=== PATIENT | female | born 1970 | race African-American/Black ===

== ENCOUNTER 2019-06-30 16:14 | Outpatient (CLI) | payer BC, SELFPAY ==
--- NOTE | ~2019-06-30 | XR_ITS ---
EXAMINATION: XR hip BI 2V w AP pelvis DATE: 06/30/2019 16:33 INDICATION: Systemic lupus erythematosus TECHNIQUE: AP view the pelvis and two views of the hips were obtained. COMPARISON: 06/26/2003 FINDINGS: Bone alignment is normal. There is mild bilateral hip osteoarthritis. An IUD is noted. Line ar calcifications in the pelvis have the appearance of sacral ribs. No abnormal erosion or sclerosis is identified. There is no fracture. Phleboliths are noted in the pelvis. IMPRESSION: 1. Mild osteoarthritis of the hips without acute findings. Reviewed, dictated and finalized at location A.
== END 2019-06-30 16:15 | disposition home or self-care (01) ==
LOC: ANHIMG 16:19
PROVIDERS: PCP Family Medicine; Visit Provider Internal Medicine
DX: M32.9 Systemic lupus erythematosus, unspecified (principal); M16.0 Bilateral primary osteoarthritis of hip
CPT/HCPCS: 73521

== ENCOUNTER 2019-09-05 02:00 | Outpatient (CLI) | payer BC, SELFPAY ==
[2019-09-05 23:05] LABS: SARS-CoV-2 RNA PCR Negative
== END 2019-09-05 02:01 | disposition home or self-care (01) ==
LOC: ANHCOVIDDT 02:00
PROVIDERS: PCP Family Medicine; Visit Provider Internal Medicine Gastroenterology
DX: Z01.812 Encounter for preprocedural laboratory examination (principal); Z11.59 Encounter for screening for other viral diseases
CPT/HCPCS: 87635; C9803; U0003

== ENCOUNTER 2019-09-08 00:43 | Day surgery (SDC) | payer BC, SELFPAY ==
[2019-08-27 14:50] VITALS: BMI 32.3
[2019-09-08] MEDS: LACTATED RINGERS 1,000 ML 150 ML IV CONT (06:36)
[2019-09-08 06:38] VITALS: BP 142/94; PULSE 105; RESP 18; TEMP 35.8; O2SAT 98
--- NOTE | 2019-09-08 07:10 | WPDANESEPPF ---
Anes - Initial Pre Proc Eval Procedure: Operation Date: 09/08/19 07:30 Proposed Procedures p Screening Colonoscopy - Jamal David MD Date/Time: 09/08/19 07:10 Surgeon: Jamal David MD Pre Op Diagnosis: Neoplasm Screening Patient Data Age: 49 Gender: F Height: 1.65 m Weight: 85.5 kg Last Vital Signs Temp 35.8 C L 09/08/19 06:38 Pulse 105 H 09/08/19 06:38 Resp 18 09/08/19 06:38 BP 142/94 H 09/08/19 06:38 Pulse Ox 98 09/08/19 06:38 Allergies Allergy/AdvReac Type Severity Reaction Status Date / Time No Known Allergies Allergy Mild Verified 09/08/19 06:15 Home Medications Medication Instructions Recorded Confirmed Type acetaminophen 325 mg tablet 325 mg PO Q6H PRN 01/14/19 08/27/19 History aspirin 81 mg tablet,delayed 81 mg PO DAILY 01/14/19 08/27/19 History release cholecalciferol (vitamin D3) 50 2,000 unit PO DAILY 01/14/19 08/27/19 History mcg (2,000 unit) tablet latanoprost 0.005 % eye drops 1 drop EACH EYE DAILY 01/14/19 08/27/19 History lisinopril 20 mg tablet 20 mg PO DAILY 07/23/19 09/08/19 History azathioprine 50 mg tablet 50 mg PO BID #60 tablet 08/19/19 08/27/19 Rx hydroxychloroquine 200 mg tablet 400 mg PO DAILY #60 tablet 08/19/19 08/27/19 Rx peg 3350-electrolytes 236 240 ml PO Q10M #4000 ml 08/26/19 Rx gram-22.74 gram-6.74 gram-5.86 gram solution calcium carbonate-vitamin D3 1 tablet PO DAILY 08/27/19 08/27/19 History [Calcium 500 + D] duloxetine 120 mg PO DAILY 08/27/19 08/27/19 History omega-3 fatty acids-fish oil 2 cap PO DAILY 08/27/19 08/27/19 History Patient hx anesthesia problems: none Family hx anesthesia problems: none PMFSH Social History Social History Smoking status: Never smoker Second hand tobacco smoke exposure: No Alcohol intake: current Drinks per week: 3 Substance use: never Substance use type: does not use Gender identity (if verbalized by the patient): Female Anes - Eval Final PreProcedure Day of Procedure 09/08/19 07:10 Patient weight: obese Heart: regular rate and rhythm Lungs: clear to auscultation and normal air movement Airway: Mallampati scale class II Neurological: alert and oriented Last oral intake: >/= 8 hours ASA classification: III Emergent: no Anesthetic plan: proceed Anesthesia type and monitoring: general GIVS and standard monitoring Informed Consent: The patient's anesthetic plan and its attendant risks and benefits were discussed with the patient/family/POA. Questions were solicited and answers provided to the satisfaction of the patient/family/POA.
--- NOTE | 2019-09-08 07:35 | PM.HPGS ---
History of Present Illness History of Present Illness Consent: Risks, benefits, and alternatives have been discussed and questions answered. Patient agrees to proceed with procedure. Chief complaint: Neoplasm Screening Narrative: Aye Bunch is a 49 year old female here for first screening colonoscopy Review of Systems Constitutional: Constitutional: Denies headache(s) and Denies weakness Eyes: Eyes: Denies blurry vision ENT: Reports Normal hearing present, Denies headache(s) and Denies neck pain Cardiovascular: Cardiovascular: Denies chest pain and Denies dyspnea Respiratory: Respiratory: Denies dyspnea Gastrointestinal: Gastrointestinal: Reports no additional gastrointestinal complaints Genitourinary: Genitourinary: Denies dysuria Musculoskeletal: Musculoskeletal: Denies neck pain Integumentary/Breasts: Skin/Breast: Denies dry skin Neurologic: Reports Normal hearing present, Denies headache(s) and Denies weakness Psychiatric: Psychiatric: Denies anxiety Endocrine: Endocrine: Denies change in body appearance Hematologic/Lymphatic: Hematologic/Lymphatic: Denies easy bleeding Allergic/Immunologic: Allergic/Immunologic: Denies urticaria PMFSH Social History Social History Smoking status: Never smoker Second hand tobacco smoke exposure: No Alcohol intake: current Drinks per week: 3 Substance use: never Substance use type: does not use Gender identity (if verbalized by the patient): Female Meds Home Medications and Allergies Home Medications Medication Instructions Recorded Confirmed Type acetaminophen 325 mg tablet 325 mg PO Q6H PRN 01/14/19 08/27/19 History aspirin 81 mg tablet,delayed 81 mg PO DAILY 01/14/19 08/27/19 History release cholecalciferol (vitamin D3) 50 2,000 unit PO DAILY 01/14/19 08/27/19 History mcg (2,000 unit) tablet latanoprost 0.005 % eye drops 1 drop EACH EYE DAILY 01/14/19 08/27/19 History lisinopril 20 mg tablet 20 mg PO DAILY 07/23/19 09/08/19 History azathioprine 50 mg tablet 50 mg PO BID #60 tablet 08/19/19 08/27/19 Rx hydroxychloroquine 200 mg tablet 400 mg PO DAILY #60 tablet 08/19/19 08/27/19 Rx peg 3350-electrolytes 236 240 ml PO Q10M #4000 ml 08/26/19 Rx gram-22.74 gram-6.74 gram-5.86 gram solution calcium carbonate-vitamin D3 1 tablet PO DAILY 08/27/19 08/27/19 History [Calcium 500 + D] duloxetine 120 mg PO DAILY 08/27/19 08/27/19 History omega-3 fatty acids-fish oil 2 cap PO DAILY 08/27/19 08/27/19 History Allergies Allergy/AdvReac Type Severity Reaction Status Date / Time No Known Allergies Allergy Mild Verified 09/08/19 06:15 Vital Signs Vital Signs - 24 hr 09/08/19 06:38 Temperature 96.5 F L Pulse Rate 105 H Respiratory Rate 18 Blood Pressure 142/94 H Pulse Oximetry 98 Exam Const: General: comfortable and no acute distress HENMT: General nose exam: Normal nares present Eyes: General: appearance normal, both eyes and all related structures Neck: Neck: no JVD Resp: Auscultation: clear to auscultation bilaterally Cardio: Rate: regular rate Rhythm: regular rhythm GI: Inspection: non-distended GI Palp: Yes Soft to palpation Skin: General skin exam: normal color Neuro: General: gait normal Speech: normal speech Extrem: General: normal to inspection Psych: Mental Status: mental status grossly normal Assessment and Plan Assessment and plan (1) Colon cancer screening: Code(s): Z12.11 - Encounter for screening for malignant neoplasm of colon Status: Acute Assessment and Plan: will proceed with colonoscopy
[2019-09-08 08:05] VITALS: BP 125/86; PULSE 96; RESP 16; O2SAT 98
[2019-09-08 08:15] VITALS: BP 131/93; PULSE 92; RESP 20; O2SAT 98
[2019-09-08 08:19] VITALS: BP 135/96; PULSE 88; RESP 20; O2SAT 99
== END 2019-09-08 08:38 | disposition home or self-care (01) ==
PROVIDERS: PCP Family Medicine; Visit Provider Internal Medicine Gastroenterology
PROC: 0DJD8ZZ Inspection of Lower Intestinal Tract, Via Natural or Artificial Opening Endoscopic (ICD-10-PCS; CPT 45378; principal; 2019-09-08 07:30)
DX: Z12.11 Encounter for screening for malignant neoplasm of colon (principal); K57.30 Diverticulosis of large intestine without perforation or abscess without bleeding; K64.8 Other hemorrhoids; Z79.82 Long term (current) use of aspirin; E66.9 Obesity, unspecified; Z68.31 Body mass index [BMI] 31.0-31.9, adult
CPT/HCPCS: 45378; J2704; J7120

== ENCOUNTER 2019-09-15 16:11 | Outpatient (CLI) | payer BC, SELFPAY ==
--- NOTE | ~2019-09-15 | MM_ITS ---
EXAMINATION: MM screening edilberto BI w amarilys HISTORY: Screening TECHNIQUE: Craniocaudal and mediolateral oblique 3-D tomosynthesis images were obtained and synthetic 2-D images were generated. CAD analysis was submitted and interpreted. COMPARISON: Comparison to multiple prior studies sequentially, with oldest reviewed study dated 04/21. BREAST PARENCHYMAL COMPOSITION: Breast composed of scattered areas of fibroglandular density FINDINGS: There is no evidence of suspicious mass, calcification, or architectural distortion to sugg est malignancy in either breast. There has been no suspicious interval change. IMPRESSION: 1. No mammographic evidence of malignancy. 2. Recommend routine screening mammography in one year. BI-RADS Category 1: Negative Reviewed, dictated and finalized at location A.
== END 2019-09-15 16:12 | disposition home or self-care (01) ==
LOC: ANHIMG 16:13
PROVIDERS: PCP Family Medicine; Visit Provider Family Medicine
DX: Z12.31 Encounter for screening mammogram for malignant neoplasm of breast (principal)
CPT/HCPCS: 77063; 77067

== ENCOUNTER 2020-04-14 15:04 | Outpatient (CLI) | payer BC, SELFPAY ==
--- NOTE | ~2020-04-14 | XR_ITS ---
EXAMINATION: XR knee RT 3V DATE: 04/14/2020 15:20 INDICATION: Right knee pain TECHNIQUE: Three views of the right knee were obtained. COMPARISON: 09/17/2017 FINDINGS: Alignment is normal. No fracture or osteochondral lesion. Again noted is mild osteoarthriti s of the lateral compartment with a tiny marginal osteophyte. Dystrophic calcification in the medial collateral ligament is again seen. No joint effusion/synovitis. IMPRESSION: 1. Mild osteoarthritis without acute findings. 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
== END 2020-04-14 15:05 | disposition home or self-care (01) ==
LOC: ANHIMG 15:07
PROVIDERS: PCP Family Medicine; Visit Provider Family Medicine
DX: S83.91XA Sprain of unspecified site of right knee, initial encounter (principal); X58.XXXA Exposure to other specified factors, initial encounter; M17.11 Unilateral primary osteoarthritis, right knee
CPT/HCPCS: 73562

== ENCOUNTER 2020-04-24 13:32 | Emergency (ER) | payer BC, SELFPAY ==
[2020-04-24 14:09] VITALS: BP 138/94; PULSE 102; RESP 16; TEMP 36.1; O2SAT 98
--- NOTE | 2020-04-24 14:30 | ED.FEMALEGU ---
HPI - Female Genitourinary General Chief complaint: Urogenital-Female Stated complaint: possible bladder infection Time Seen by Provider: 04/24/20 14:30 Source: patient Mode of arrival: ambulatory Limitations: no limitations History of Present Illness HPI Narrative: Aye Bunch is a 49 yo female with a PMH of lupus, rheumatoid arthritis, hypertension, seasonal allergies, high cholesterol, who is here with urinary frequency x2 days. She has spasming at the end of urination that is painful states she feels like she has to urinate all the time Related Data Home Medications Medication Instructions Recorded Confirmed acetaminophen 325 mg tablet 325 mg PO Q6H PRN 01/14/19 04/14/20 aspirin 81 mg tablet,delayed 81 mg PO DAILY 01/14/19 04/14/20 release cholecalciferol (vitamin D3) 50 2,000 unit PO DAILY 01/14/19 04/14/20 mcg (2,000 unit) tablet latanoprost 0.005 % eye drops 1 drop EACH EYE DAILY 01/14/19 04/14/20 calcium carbonate-vitamin D3 1 tablet PO DAILY 08/27/19 04/14/20 [Calcium 500 + D] omega-3 fatty acids-fish oil 2 cap PO DAILY 08/27/19 04/14/20 duloxetine 60 mg PO BID 04/24/20 Allergies Allergy/AdvReac Type Severity Reaction Status Date / Time No Known Allergies Allergy Mild Verified 04/24/20 14:05 Review of Systems Review of Systems: Narrative: CONSTITUTIONAL: Denies fever, chills, sweats. EYES: Denies visual changes, redness, discharge. ENT: Denies rhinorrhea, congestion, sore throat, otalgia. CARDIOVASCULAR: Denies chest pain, palpitations, edema. RESPIRATORY: Denies dyspnea, wheezing, cough GASTROINTESTINAL: Denies abdominal pain, nausea, vomiting, diarrhea. GENITOURINARY: Has dysuria, no hematuria, abnormal discharge SKIN: Denies rash or itching. NEUROLOGIC: Denies numbness, or focal weakness. PSYCHIATRIC: Denies anxiety or depression. [facility] Past Medical History Medical History (Updated 04/24/20 @ 14:44 by Petrona Cruz CNP) Benign essential HTN Fibromyalgia Lupus Primary localized osteoarthritis of both hips (~2015) Vitamin D deficiency Family History Family History Mother Hypertension Sibling Cerebrovascular accident, Onset Age: 48 Social History Social History Social History: Single Smoking status: Never smoker Second hand tobacco smoke exposure: No Alcohol intake: current Drinks per week: 3 Substance use: never Substance use type: does not use Gender identity (if verbalized by the patient): Female Comments At time of signature, I agree with nursing past medical, surgical, social and family history. There is no relevant family history pertinent to the presenting complaint. Exam Narrative: Exam Narrative: GENERAL: This is a well-nourished, well-developed patient, in mild distress. HEAD: normocephalic, atraumatic. EYES: Sclera clear/white. Vision is grossly intact. EARS: External ears normal. Hearing grossly intact. NOSE: External nose normal without nasal discharge, nares without redness, no rhinorrhea. THROAT: Mucous membranes moist, NECK: Neck supple, CARDIOVASCULAR: Regular rate and rhythm without murmurs, gallops, or rubs. RESPIRATORY: Clear to auscultation. Breath sounds equal bilaterally. No wheezes, rales, or rhonchi. GASTROINTESTINAL: Abdomen soft, non-tender, SKIN: warm, intact with no suspicious lesions or rash, good texture and turgor. NEURO: awake, alert, and oriented to person, place and time. There were no obvious focal neurologic abnormalities. Steady gait EXTREMITIES: Normal range of motion. BACK: Nontender without deformity Course Course Emergency Course: [facility] with complaints of urinary frequency for the last 24 to 48 hours, the only pain she has is a bladder spasm at the end of urinating Stage III plus leukocytes 2+ protein, urine sent for culture Keflex and Pyridium Directions given in
== END 2020-04-24 14:48 | disposition home or self-care (01) ==
PROVIDERS: Emergency Provider Nurse Practitioner; PCP Family Medicine
DX: N30.90 Cystitis, unspecified without hematuria (principal); M79.7 Fibromyalgia; M16.0 Bilateral primary osteoarthritis of hip; M32.9 Systemic lupus erythematosus, unspecified; E55.9 Vitamin D deficiency, unspecified; M06.9 Rheumatoid arthritis, unspecified; I10 Essential (primary) hypertension; E78.00 Pure hypercholesterolemia, unspecified
CPT/HCPCS: 81003; 87077; 87086; 87088; 87186; 99213; G0463

== ENCOUNTER 2020-05-18 14:24 | Outpatient (CLI) | payer BC, SELFPAY ==
--- NOTE | ~2020-05-18 | MR_ITS ---
EXAMINATION: MR knee RT wo con DATE: 05/18/2020 15:51 INDICATION: Right knee pain TECHNIQUE: Magnetic resonance imaging (MRI) of the right knee was performed without intravenous contr ast. Sequences included coronal PD-weighted FSE, coronal PD-weighted FS FSE, sagittal T2-weighted FS E, sagittal PD-weighted FS FSE and axial PD weighted fat saturated FSE. COMPARISON: None. FINDINGS: Medial compartment: Medial meniscus is normal. Articular cartilage is normal. Lateral compartment: Lateral meniscus is normal. Articular cartilage is normal. Patellofemoral compartment: Likely artifactual mild surface irregularity along the patella on a couple of the axial images with s mooth chondral surface seen at this location on the sagittal sequences. Trochlear cartilage is normal . Ligaments and tendons: Anterior and posterior cruciate ligaments are normal. There is thickening and mild increased signal o f the medial collateral ligament with tiny heterotopic ossification along the superficial margin of t he proximal ligament consistent with scarring related to chronic sprain. No surrounding edema to sugg est acute injury. Mild patellar tendinopathy with small amount of enthesopathic ossification along th e superficial aspect of its patellar insertion. There is also mild distal quadriceps tendinopathy. Th e visualized medial and lateral hamstring tendons as well as the iliotibial band are normal. Fluid: Physiologic amount of fluid in the joint space. No loose osteochondral bodies identified. Multilobula kika ganglion cyst at the posteromedial aspect of the knee. This includes a small component measuring 1.8 cm craniocaudally by 6 x 4 mm maximal orthogonal dimensions extending between the semimembranosus tendon and the medial head of the gastrocnemius (Medina's cyst) with larger components extending ceph alad along the deep margin of the semimembranosus tendon and muscle measuring 5.1 cm craniocaudally a nd 2.2 x 0.8 cm in maximal orthogonal dimensions and caudally along the deep margin of the medial hea d of the gastrocnemius measuring 2.9 craniocaudally and 2.2 x 1.3 cm in maximal orthogonal dimensions . Osseous/other: Normal marrow signal. No fracture or pathologic marrow replacing process. IMPRESSION: 1. 3 small to moderate-sized ganglion cysts at the posterior medial aspect of the knee. 2. Scarring and heterotopic ossification along the proximal medial collateral ligament consistent wit h chronic sprain. 3. Mild tendinopathy of the extensor mechanism. Reviewed, dictated and finalized at location B. IMPRESSION: 1. 3 small to moderate-sized ganglion cysts at the posterior medial aspect of t he knee. 2. Scarring and heterotopic ossification along the proximal medial collateral l igament consistent with chronic sprain. 3. Mild tendinopathy of the extensor mechanism.
== END 2020-05-18 14:25 | disposition home or self-care (01) ==
PROVIDERS: PCP Family Medicine; Visit Provider Nurse Practitioner Family
DX: M67.461 Ganglion, right knee (principal)
CPT/HCPCS: 73721

== ENCOUNTER 2020-06-07 13:14 | Outpatient (CLI) | payer BC, SELFPAY ==
--- NOTE | ~2020-06-07 | US_ITS ---
EXAMINATION: US asp injection ganglion cyst DATE: 06/07/2020 14:34 INDICATION: Right knee ganglion cyst. TECHNIQUE: The procedure including the risks, benefits, and alternatives was discussed with the patie nt. Risks discussed included bleeding and infection. The patient understood the risks and agreed to p roceed. The skin posterior to the right knee was prepped and draped in usual sterile fashion. Anesth etic was administered with 1% lidocaine subcutaneously. An 18 gauge trochar needle was then used to aspirate a ganglion cyst under continuous sonographic guidance. The entry site was cleaned and dresse d. There were no immediate complications. FINDINGS: Ultrasound images demonstrate the needle in a ganglion cyst posterior to the right knee. IMPRESSION: 1. Ultrasound-guided needle aspiration of a ganglion cyst posterior to right knee yielding 6 mL clear , yellow fluid. Reviewed, dictated and finalized at location A. IMPRESSION: 1. Ultrasound-guided needle aspiration of a ganglion cyst posterior to right kn ee yielding 6 mL clear, yellow fluid.
== END 2020-06-07 13:15 | disposition home or self-care (01) ==
PROVIDERS: PCP Family Medicine; Visit Provider Nurse Practitioner Family
DX: M67.461 Ganglion, right knee (principal)
CPT/HCPCS: 20612

== ENCOUNTER → 2020-10-19 14:42 | Outpatient (CLI) | payer BC, SELFPAY ==
--- NOTE | ~2020-10-19 | MM_ITS ---
EXAMINATION: MM screening edilberto BI w amarilys HISTORY: Screening mammogram TECHNIQUE: Craniocaudal and mediolateral oblique 3-D tomosynthesis images were obtained and synthetic 2-D images were generated. CAD analysis was submitted and interpreted. COMPARISON: 09/2019, 08/21/2018, 07/24/2017 bilateral digital screening mammogram examinations BREAST PARENCHYMAL COMPOSITION: The breasts are heterogeneously dense, which may obscure small masses . FINDINGS: There is no evidence of suspicious mass, calcification, or architectural distortion to sugg est malignancy in either breast. There has been no suspicious interval change. IMPRESSION: 1. No mammographic evidence of malignancy. 2. Recommend routine screening mammography in one year. BI-RADS Category 1: Negative Reviewed, dictated and finalized at location A.
== END ==
PROVIDERS: PCP Family Medicine; Visit Provider Advanced Practice Midwife
DX: Z12.31 Encounter for screening mammogram for malignant neoplasm of breast (principal)
CPT/HCPCS: 77063; 77067

== ENCOUNTER 2021-11-23 14:56 | Outpatient (CLI) | payer BC, SELFPAY ==
[2021-11-23 15:13] LABS: Hematocrit 41.5 % (37.0-47.0); Mean Corpuscular HGB Conc 33.7 g/dl (32-36); Mean Corpuscular Hemoglobin 32.3 pg (26-34); Mean Corpuscular Volume 95.8 fl (80-100); Mean Platelet Volume 9.9 fl (7.4-10.4); Platelet Count Result 234 k/mm3 (150-375); Red Blood Count 4.33 M/mm3 (4.2-5.4); Red Cell Distribution Width 13.2 % (11.5-14.5); White Blood Count 5.8 K/mm3 (4.5-10.0)
[2021-11-23 16:08] LABS: Alanine Aminotransferase 19 U/L (6-35); Albumin Level 4.3 g/dL (3.5-5.1); Alkaline Phosphatase 94 U/L (38-126); Anion Gap 8 mmol/L (8-16); Aspartate Amino Transferase 25 U/L (14-36); Bilirubin,Total 0.6 mg/dL (0.2-1.3); Blood Urea Nitrogen 14 mg/dL (7-17); CRP 0.7 mg/dL (<1.0); Calcium 8.8 mg/dL (8.4-10.2); Carbon Dioxide 28 mmol/L (22-30); Chloride 105 mmol/L (98-107); Estimated Glomerular Filt Rate > 60; Glucose 82 mg/dL (65-110); Potassium 3.8 mmol/L (3.4-5.0); Sodium 141 mmol/L (137-145)
[2021-11-23 16:15] LABS: Creatinine Urine 294.7 mg/dL; Total Protein Urine Random 7 mg/dL; Ur Ttl Prot Creatinine Ratio 0.02 mg/mg (0-0.20)
[2021-11-23 16:42] LABS: Erythrocyte Sedimentation Rate 19 mm/hr (0-20)
== END 2021-11-23 14:57 | disposition home or self-care (01) ==
LOC: ANHLAB 14:57
PROVIDERS: PCP Family Medicine; Visit Provider Internal Medicine
DX: M32.9 Systemic lupus erythematosus, unspecified (principal); M19.90 Unspecified osteoarthritis, unspecified site
CPT/HCPCS: 36415; 80053; 82570; 84156; 85027; 85652; 86140

== ENCOUNTER → 2022-02-28 08:12 | Outpatient (CLI) | payer BC, SELFPAY ==
--- NOTE | ~2022-02-28 | MMUS_ITS ---
EXAMINATION: MM diagnostic edilberto BI w amarilys, US breast BI limited HISTORY: Palpable lumps at the 12:00 location of both breasts. TECHNIQUE: Craniocaudal, mediolateral, and mediolateral oblique 3-D tomosynthesis images of the dominique ts were performed and synthetic 2-D images were generated. CAD analysis was submitted and interpreted . High resolution limited bilateral breast ultrasound was performed. COMPARISON: 10/19/2020, 09/15/2019, 08/21/2018 BREAST PARENCHYMAL COMPOSITION: The breasts are heterogeneously dense, which may obscure small masses . FINDINGS: MAMMOGRAPHIC FINDINGS: No suspicious mass, calcification, or architectural distortion are identified in either breast to sug gest malignancy. There has been no suspicious interval change. No mammographic correlate is identifie d for the reported palpable abnormality of either breast. ULTRASOUND: There appears to be an approximately 10 mm x 6 mm hypoechoic mass with angular and indistinct margins and posterior acoustic shadowing at the 10:00 location 5 cm from the nipple in the right breast. No suspicious cystic or solid mass is identified in the left breast to correspond with the palpable abno rmality of concern. IMPRESSION: 1. Indeterminate mass at the 10:00 location 5 cm from the nipple in the right breast. Ultrasound-guid ed biopsy is recommended. 2. Recommend clinical follow-up and routine screening mammography of the left breast. BI-RADS category 4, suspicious findings. 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 Indeterminate mass at the 10:00 location 5 cm from the nipple in the right b reast. Ultrasound-guided biopsy is recommended. 2. Recommend clinical follow-up and routine screening mammography of the left b reast. BI-RADS category 4, suspicious findings.
== END ==
PROVIDERS: PCP Family Medicine; Visit Provider Nurse Practitioner
DX: N63.10 Unspecified lump in the right breast, unspecified quadrant (principal); N63.20 Unspecified lump in the left breast, unspecified quadrant; R92.8 Other abnormal and inconclusive findings on diagnostic imaging of breast
CPT/HCPCS: 76642; 77062; 77066; G0279

== ENCOUNTER 2022-09-23 10:51 | Emergency (ER) | payer BC, SELFPAY ==
--- NOTE | 2022-09-23 10:57 | ED.EYEPROB ---
HPI - Eye Problem General Chief complaint: Eye Problems Stated complaint: right eye irritated Time Seen by Provider: 09/23/22 11:31 Source: patient and RN notes reviewed Mode of arrival: ambulatory Limitations: no limitations History of Present Illness HPI Narrative: 52-year-old female presents with concern for right eye irritation that started Saturday. Reports it feels like there is a hair in it. She denies any known injury. She reports she has been using eye drops without relief. She denies any cold symptoms or vision changes. chief complaint: eye redness Related Data Home Medications Medication Instructions Recorded Confirmed acetaminophen 325 mg tablet 325 mg PO Q6H PRN Pain 01/14/19 04/04/22 (Tylenol) latanoprost 0.005 % eye drops 1 drop ophthalmic (eye) DAILY 01/14/19 04/04/22 levonorgestrel 21 mcg/24 hours (8 1 device intrauterine ONCE 08/03/21 04/04/22 yrs) 52 mg intrauterine device (Mirena) lisinopril 40 mg tablet 40 mg PO DAILY 08/31/22 08/31/22 Allergies Allergy/AdvReac Type Severity Reaction Status Date / Time No Known Allergies Allergy Mild Verified 09/23/22 11:01 Review of Systems Review of Systems: CONSTITUTIONAL: Denies malaise, chills, sweats, or fever. EYES: Denies visual changes. Reports right eye redness, irritation, watery discharge. ENT: Denies rhinorrhea, congestion, sinus pain, otalgia or sore throat. SKIN: Denies rash or itching. NEUROLOGIC: Denies numbness, weakness, or headache. PSYCHIATRIC: Denies anxiety or depression. All systems reviewed & are unremarkable except as noted in HPI and below PMFSH Past Medical History Medical History Acute bronchitis Benign essential HTN Claustrophobia Colon cancer screening Counseling on health promotion and disease prevention Degenerative joint disease of knee Encounter for medication management Fibromyalgia Ganglion, right knee Knee pain, right Lupus Medial meniscus tear Neck muscle spasm Other specified counseling Patellofemoral syndrome Primary localized osteoarthritis of both hips (~2015) Right knee DJD Right knee sprain Tachycardia Trochanteric bursitis Vitamin D deficiency Family History Family History Mother Hypertension Sibling Cerebrovascular accident, Onset Age: 48 Social History Social History Social History: Single Smoking status: Never smoker Second hand tobacco smoke exposure: No Alcohol intake: current Drinks per week: 3 Substance use: never Substance use type: does not use Lack of Food: Never True Concerned About Future Housing: No Difficulty Paying Gas/Electric Bills: No Difficulty Paying for Meds: No Currently Unemployed: No Education: Trade/Vocational Certificate Difficulty w/ Childcare or Family Care: No Living arrangements: alone Occupation/Education: occupation Gender identity (if verbalized by the patient): Female Sexual Orientation (if Verbalized by the Patient): Straight or Heterosexual Comments At time of signature, agree with nursing past medical, surgical, social and family history. There is no relevant family history pertinent to the presenting complaint Exam Narrative: GENERAL: Well-appearing, well-nourished, and in no acute distress. HEAD: Normocephalic, atraumatic. EYES: PERRLA, left sclera clear, and EOMI. No nystagmus. Right sclera and conjunctivae injected, no foreign body or corneal abrasion noted upon was lamp exam. Upper and lower eyelid unremarkable, no periorbital edema noted ENT: Nares clear, turbinates pink, no rhinorrhea or epistaxis. Mucous membranes moist. TM pearly cabrera with sharp light reflex bilaterally; no tragal tenderness. NECK: Supple. CHEST: No respiratory distress. Speaks in full sentences. HEART: Regular rate and rhythm. SKIN: Warm, dry, no visibl
[2022-09-23 11:03] VITALS: BP 131/97; PULSE 90; RESP 16; TEMP 36.8; O2SAT 99
== END 2022-09-23 11:42 | disposition home or self-care (01) ==
PROVIDERS: Emergency Provider Nurse Practitioner; PCP Family Medicine
DX: H10.9 Unspecified conjunctivitis (principal); I10 Essential (primary) hypertension; M79.7 Fibromyalgia; M17.11 Unilateral primary osteoarthritis, right knee; M16.0 Bilateral primary osteoarthritis of hip
CPT/HCPCS: 99213; A9270; G0463

== ENCOUNTER 2023-04-17 07:35 | Outpatient (CLI) | payer BC, SELFPAY ==
--- NOTE | ~2023-04-17 | MMUS_ITS ---
EXAMINATION: MM diagnostic edilberto BI w amarilys, US breast BI complete HISTORY: Recent breast biopsy elsewhere in the spring 2022. TECHNIQUE: Bilateral full field and spot 3-D tomosynthesis images of both breasts were performed and synthetic 2-D images were generated. CAD analysis was submitted and interpreted. High resolution comp lete bilateral breast ultrasound examination including all 4 quadrants and subareolar areas was perfo rmed. COMPARISON: 04/11/2022 postbiopsy diagnostic right mammogram 02/28/2022 diagnostic bilateral mammogram and bilateral Limited breast ultrasound BREAST PARENCHYMAL COMPOSITION: The breasts are heterogeneously dense, which may obscure small masses . FINDINGS: MAMMOGRAPHIC FINDINGS: There is a biopsy marker in the upper outer right breast. There is suggestion of subtle architectural distortion in the central and inner medial aspect of the right breast (craniocaudal Tomosynthesis image 35/83). Otherwise no suspicious mass, architectural distortion, malignant calcification, skin thickening or r etraction of either breast is evident. However, the heterogeneously dense stroma may obscure small masses. Bilateral complete breast ultraso und examination was performed. ULTRASOUND: Right breast: 10:00 6 cm from nipple: Irregular poorly circumscribed hypoechoic approximately 10 x 8 x 15 mm mass w ith posterior shadowing is noted. The lesion is very suspicious sonographically. Ultrasound-guided bi opsy is recommended. No other suspicious mass or shadowing of the right breast is detected. Left breast: No suspicious mass or shadowing, cyst or other significant abnormality of the left breas t is detected. IMPRESSION: 1. Very suspicious irregular poorly circumscribed hypoechoic approximately 10 x 8 x 15 mm mass with p osterior shadowing at right breast 10:00 6 cm from nipple 2. Ultrasound-guided biopsy is recommended BI-RADS category 4, suspicious findings. Dr. Mcallister telephoned the report and ultrasound guided biopsy recommendation on 04/17/2023 at 1040 hours to Kimberley, Deoiling Machine Operator. Reviewed, dictated and finalized at location A. ICAL INSTRUMENT TECHNICIAN IMPRESSION: 1. Very suspicious irregular poorly circumscribed hypoechoic approximately 10 x 8 x 15 mm mass with posterior shadowing at right breast 10:00 6 cm from nipple 2. Ultrasound-guided biopsy is recommended BI-RADS category 4, suspicious findings. Dr. Mcallister telephoned the report and ultrasound guided biopsy recommendation on at 1040 hours to Su Chu.
== END 2023-04-17 07:36 ==
PROVIDERS: PCP Nurse Practitioner; Visit Provider Nurse Practitioner
DX: N63.25 Unspecified lump in the left breast, overlapping quadrants (principal); R92.8 Other abnormal and inconclusive findings on diagnostic imaging of breast
CPT/HCPCS: 76641; 77062; 77066; G0279

== ENCOUNTER 2024-07-01 11:07 | Outpatient (CLI) | payer BC, SELFPAY ==
--- NOTE | ~2024-07-01 | XR_ITS ---
Left Knee Technique: AP and lateral views were obtained. Clinical History: Pain Findings: No fracture or dislocation is seen. Osseous alignment is anatomic. Joint spaces are preserv ed without degenerative or erosive change. Soft tissues are unremarkable. No joint effusion is seen. Impression: Unremarkable left knee radiographs. Reviewed, dictated and finalized at location . Impression: Unremarkable left knee radiographs.
--- NOTE | ~2024-07-01 | XR_ITS ---
Right foot Technique: AP and lateral views were obtained. Clinical History: Pain Findings: No acute fracture or dislocation is seen. Osseous alignment is anatomic. Joint spaces are p reserved without erosive or degenerative change. Soft tissues are unremarkable. Impression: Unremarkable right foot radiographs. Reviewed, dictated and finalized at [facility]. Impression: Unremarkable right foot radiographs.
--- NOTE | ~2024-07-01 | XR_ITS ---
AP and lateral views of the right hip Clinical history: Pain Findings: No acute fracture or dislocation is seen. Osseous alignment is anatomic. There is minimal d egenerative change of the right hip joint. Soft tissues are unremarkable. Impression: Minimal degenerative change of the right hip joint. Reviewed, dictated and finalized at location . Impression: Minimal degenerative change of the right hip joint.
--- NOTE | ~2024-07-01 | XR_ITS ---
Left foot Technique: AP and lateral views were obtained. Clinical History: Pain Findings: No acute fracture or dislocation is seen. Osseous alignment is anatomic. Type II os navicul ar noted. Joint spaces are preserved without erosive or degenerative change. Soft tissues are unremar kable. Impression: Type II os navicular. No other significant findings. Reviewed, dictated and finalized at [facility]. Impression: Type II os navicular. No other significant findings.
--- NOTE | ~2024-07-01 | XR_ITS ---
AP lateral views of the left hip Clinical history: Pain Findings: No acute fracture or dislocation is seen. Osseous alignment is anatomic. Left hip joint int act. Soft tissues are unremarkable. Impression: No significant abnormality is seen. Reviewed, dictated and finalized at location M. Impression: No significant abnormality is seen.
--- NOTE | ~2024-07-01 | XR_ITS ---
Left ankle Technique: AP and lateral views were obtained. Clinical History: Pain Findings: No acute fracture or dislocation is seen. Osseous alignment is anatomic. Ankle mortise and other visualized joint spaces are preserved. There is enthesopathic change at the Achilles tendon ins ertion. Impression: No acute abnormality. Enthesopathic change at the Achilles tendon insertion. Reviewed, dictated and finalized at location . Impression: No acute abnormality. Enthesopathic change at the Achilles tendon insertion.
--- NOTE | ~2024-07-01 | XR_ITS ---
Left Shoulder Technique: AP and axillary views were obtained. Clinical History: Pain Findings: No fracture or dislocation is seen. Osseous alignment is anatomic. The glenohumeral joint i s intact. There is moderate AC joint degenerative change. Soft tissues are unremarkable. Impression: Moderate AC joint degenerative change. Reviewed, dictated and finalized at location . Impression: Moderate AC joint degenerative change.
--- NOTE | ~2024-07-01 | XR_ITS ---
Right Knee Technique: AP and lateral views were obtained. Clinical History: Pain Findings: No fracture or dislocation is seen. Osseous alignment is anatomic. Joint spaces are preserv ed without degenerative or erosive change. Soft tissues are unremarkable. No joint effusion is seen. Impression: Unremarkable right knee radiographs. Reviewed, dictated and finalized at location . Impression: Unremarkable right knee radiographs.
--- NOTE | ~2024-07-01 | XR_ITS ---
Right ankle Technique: AP and lateral views were obtained. Clinical History: Pain Findings: No acute fracture or dislocation is seen. Probable chronic fracture fragments or enthesopat hic change at the medial malleolus. Osseous alignment is anatomic. Ankle mortise and other visualized joint spaces are preserved. Soft tissues are otherwise unremarkable. Impression: No acute abnormality. Reviewed, dictated and finalized at location . Impression: No acute abnormality.
--- NOTE | ~2024-07-01 | XR_ITS ---
Right Shoulder Technique: AP and axillary views were obtained. Clinical History: Pain Findings: No fracture or dislocation is seen. Osseous alignment is anatomic. The glenohumeral joint i s intact. There is moderate AC joint degenerative change. Soft tissues are unremarkable. Impression: Moderate AC joint degenerative change. Reviewed, dictated and finalized at location . Impression: Moderate AC joint degenerative change.
--- OUTSIDE RECORDS SUMMARY | 2024-07-01 11:43 | XMS_ITS | Referral Summary ---
Author Organization [facility] Address [address] [place] [address] Care Team Providers Care Manager Career Name Role Phone Juanita Oropeza MD Primary Care Provider Celine Villatoro INDUSTRIAL RETROFIT DESIGNER Unavailable [phone] Encounters Date Type Department Care Team Description 06/19/2024 3:20 PM CDT - 06/19/2024 11:59 PM CDT Hospital Encounter [facility] Medical Office Bldg 1 Breast [facility] [address] [place] [address] Screening mammogram, encounter for Discharge Disposition: Discharge to home or self care 04/30/2024 Orders Only [facility] [address] [place] [address] Nathaly Jara NP Abnormal mammogram of both breasts (Primary Dx) from Last 3 Months Allergies No known active allergies Medications tiZANidine (ZANAFLEX) 2 mg tablet TAKE 1 TABLET BY MOUTH EVERY DAY NEEDED FOR MUSCLE SPASTICITY 0 Active metoprolol tartrate (LOPRESSOR) 25 mg immediate release tablet Take 1 tablet (25 mg total) by mouth 2 (two) times a day 2 Active lisinopriL (PRINIVIL,ZESTR IL) 40 mg tablet 3 Active latanoprost (XALATAN) 0.005 % ophthalmic solution INSTILL 1 DROP IN EACH EYE AT BEDTIME 2 Active hydrOXYchloroQU INE (PLAQUENIL) 200 mg tablet Take 2 tablets (400 mg total) by mouth daily 2 Active hydroCHLOROthia zide (HYDRODIURIL) 25 mg tablet Take 1 tablet (25 mg total) by mouth daily Active DULoxetine DR (CYMBALTA) 60 mg capsule Take 1 capsule (60 mg total) by mouth 2 (two) times a day 2 Active azaTHIOprine (IMURAN) 50 mg tablet Take 1 tablet (50 mg total) by mouth 2 (two) times a day 3 Active Active Problems Problem Noted Date Diagnosed Date Abnormal mammogram of both breasts 03/29/2022 Social History Tobacco Use Types Packs/Day Years Used Date Smoking Tobacco: Never Smokeless Tobacco: Never Tobacco Cessation:Counseling Given: Not Answered Comments Unknown Sex and Gender Information Value Date Recorded Sex Assigned at Not on file 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 Gender Identity Not on file Sexual Orientation Not on file Last Filed Vital Signs Vital Sign Reading Time Taken Comments Blood Pressure - - Pulse - - Temperature - - Respiratory Rate - - Oxygen Saturation - - Inhaled Oxygen Concentration - - Weight 90.7 kg (200 lb) 05/02/2023 1:03 PM CDT Height 165.1 cm (5' 5 ) 05/02/2023 1:03 PM CDT Body Mass Index 33.28 05/02/2023 1:03 PM CDT Plan of Treatment Not on file Procedures Procedure Name Priority Date/Time Associated Diagnosis Comments SCREENING MAMMOGRAM BILATERAL W CHARLES Schedule Routine, Read Routine (OP Routine) 06/19/2024 3:32 PM CDT Screening mammogram, encounter for from Last 3 Months Results * Screening Mammogram Bilateral W Charles (06/19/2024 3:32 PM CDT) Anatomical Region Laterality Modality Breast Bilateral Mammography Impressions 06/19/2024 3:39 PM CDT Bilateral No evidence of malignancy in either breast. OVERALL BI-RADS FINAL ASSESSMENT: 1 - Negative RECOMMENDATION: Recommend bilateral annual screening mammography. Narrative 06/19/2024 3:39 PM CDT EXAMINATION: Screening Mammogram Bilateral W Charles: 06/19/2024 COMPARISON: Relevant prior studies available at the time of interpretation were reviewed. TECHNIQUE: Mammography was performed with 2D and digital breast tomosynthesis (DBT) images. CAD was utilized. BREAST PARENCHYMAL COMPOSITION: The breasts are heterogeneously dense, which may obscure small masses. FINDINGS: There is an unchanged biopsy marker clip in the right breast. There is no suspicious mass, calcification, or architectural distortion in either breast. There has been no suspicious interval change. us Self Screening Mammogram IMG MAMMO PROCEDURES Fi nal Result from Last 3 Months Insurance [facility] FED[employer]AL [facility] [employer] Care Teams Manager Career Relationship Specialty Start Date End Date Juanita Oropeza MD [address] [place] [address] PCP - General Family Medicine 03/01/22 Celine Villatoro NP [address] [place] [address] Nurse Practitioner Obstetrics and Gynecology 03/01/22
--- OUTSIDE RECORDS SUMMARY | 2024-07-01 11:43 | XMS_ITS | Data Portability ---
Author Organization [facility] Address [address] [place] [place] [address] [place] [address] Care Team Providers Care Airport Attendant Name Role Phone CAITLYN JETER Primary Care Provider Assessment Encounter Date Assessment Date Assessment LastModified by Organization Details LastModified Time 05/03/2021 05/03/2021 await labs, f/u wwe [email or web address] Not available 05/03/2021 13:31:25 01/30/2022 01/30/2022 Annual gynecological exam performed. Patient will come back in a year unless there are new symptoms. [email or web address] Not available 01/30/2022 15:09:19 03/20/2023 03/20/2023 Annual gynecological exam performed. Patient will come back in a year unless there are new symptoms. [email or web address] Not available 03/19/2023 12:02:49 Plan of Treatment Reminders Order Date Submit Date Provider Last Modified By Organization Details Last Modified Time Details Appointments [facility] 2024 03:45P M LUDY THORNTON, DIRECTOR OCCUPATIONAL Not available Not available Not available Lab culture , urine 2023 024 [facility] (Lab), [address], [place], [address], 03/27/2023 07:18:11 urinaly sis, dipstic k 2023 024 [facility], [address], [address], [place], [address], 03/25/2023 16:58:19 pregnan cy test, urine 2023 0[email or web address] [place] [facility] [address], [place], [address], 03/25/2023 16:57:32 lh + FSH, serum 2023 024 [facility] (Lab), [address], [place], [address], 03/21/2023 01:20:36 Referral None recorde d. Procedures None recorde d. Surgeries None recorde d. Imaging MAMMO, diagnos tic, digital , bilater al 2023 024 , [address], [place], [address], 09/29/2023 05:00:58 US, breast, unilate ral - left breast lump at 12 oclock : h/o of right breast biopsy 04/2022 024 , [address], [place], [address], 09/29/2023 05:00:58 MAMMO, diagnos tic, digital , bilater al 2021 022 , [address], [place], [address], 02/28/2022 15:24:17 US, breast, bilater al, complet e 2021 022 [email or web address], [address], [place], [address], 03/12/2022 17:01:01 Medication Orders None recorde d. Patient TargetsNo targets recorded. Patient InstructionsNo instructions recorded. Reason for Referral None Reported. Results Created Date Observation Date Name Description Value Unit Range Abnormal Flag Note LastModifiedBy Organization Detail LastModifiedTime 05/04/19 22 05/03/2021 LH (LUTE NIZIN G HORMO NE) LH 44.4 mIU/m L This assay was perfo rmed using [employer] ratio n reage nts and test kits. Value s obtai kate with other assay metho ds or kits canno t be used inter [facility] . Femal es Mid-F ollic ular: 2.4-1 2.6 mIU/m L Mid-C ycle: 14.0- 95.6 mIU/m L Mid-L uteal : 1.0-1 1.4 mIU/m L Postm enopa use: 7.7-5 8.5 mIU/m L Not Available [facility] (Lab) [address], [place], [address], 05/04/2021 01:38:46 05/04/19 22 05/03/2021 FSH FSH 78.1 mIU/m L This assay was perfo rmed using [employer] reage nts and test kits. Value s obtai kate with other assay metho ds or kits canno t be used inter [facility] dorianmuir . Femal es Folli cular : 3.5-1 2.5 mIU/m L Ovula tion: 4.7-2 1.5 mIU/m L Lutea l: 1.7-7 .7 mIU/m L Postm enopa use: 25.8- 134.8 mIU/m L Not Available [facility] (Lab) [address], [place], [address], 05/04/2021 01:38:47 01/31/20 22 01/30/2022 IMAGE GUIDE D PAP AND HPV REGAR DLESS image guided Pap, HPV regardless of Pap result SEE RESULT S BELOW CASE REPOR T: Cytol ogy Gynec ologi ольга Repor t Case: [id number] Autho moshe marinelli Provi jeff: Celine Villatoro, DIRECTOR OCCUPATIONAL Colle cted: 01/30 1719 Order ing Locat ion: [place] Patho logmelanie Recei shayy: 01/31 0110 First Scree n: Bobby Simon, CT Rescr een: Lona Joseph, CT Speci men: Scree kasandra Pap - Image d, Cervi x STATE MENT OF ADEQU ACY: Satis facto ry for evalu ation Trans forma tion zone compo nent absen t The absen ce of an endoc ervic al compo nent was confi rmed by an addit ional jose m ner. FINAL DIAGN OSIS: Negat matias for Intra epith elial Lesio n or Angela hadley (NIL) . Elect diandra rodas yeison d by Lona Joseph, CT on 02/01 at 5:06 PM ----- ----- ----- ----- ----- ----- ----- ----- ----- ----- ----- ----- ----- ----- ----- ----- ----- ---- HPV RESUL TS: HPV mRNA E6/E7 : No HPV mRNA Detec kika NOTE: This high risk HPV mRNA assay detec ts fourt een high- risk HPV types (16, 18, 31, 33, 35, 39, 45, 51, 52, 56, 58, 59, 66, 68) witho ut diffe renti ation . COMME NT: Note: This speci men was revie wed by a Cytot echno logis t and/o r Patho logis t (as indic ated in this repor t) after evalu ation using the Thinp rep Imagi ng Syste m. CLINI ОЛЬГА INFOR MATIO N: Menst rual Statu s: LMP (if appli cable ): Clini ольга Histo ry/Pr eviou s Pap: Type of Neopl morris (if appli cable ): Signi fican t Clini ольга Findi ngs: Other Histo ry: Hormo isaac (if appli cable ): PAP EDUCA MANNY L NOTE: The Pap Test is a scree kasandra test with an inher ent false negat matias rate. Liqui d-bas ed sampl ing may decre ase, but will not elimi cas, false negat matias resul ts. A negat matias resul t does not precl ude the prese nce and/o r devel opmen t of disea se, since the prese nce of abnor mal cells in the sampl e depen ds on the locat ion of the lesio n and sampl ing techn ique. Flor nued regul ar scree kasandra is the best metho d of cance r preve ntion . If repor kika cytol ogic findi ng do not corre late with physi ольга and/o r histo rical findi ngs, furth er inves tigat ion is recom farrah d, as clini ana cristina muñoz nted. Not Available [facility] (Lab) [address], [place], [address], 02/01/2022 18:08:32 03/20/19 24 03/20/2023 FSH / LH FSH 78.3 mIU/m L This assay was perfo rmed using [employer] n reage nts and test kits. Value s obtai kate with other assay metho ds or kits canno t be used inter [facility] . Femal es Folli cular : 3.5-1 2.5 mIU/m L Ovula tion: 4.7-2 1.5 mIU/m L Lutea l: 1.7-7 .7 mIU/m L Postm enopa use: 25.8- 134.8 mIU/m L Not Available [facility] (Lab) [address], [place], [address], 03/21/2023 01:20:36 03/20/19 24 03/20/2023 FSH / LH LH 40.7 mIU/m L This assay was perfo rmed using [employer] n reage nts and test kits. Value s obtai kate with other assay metho ds or kits canno t be used inter [facility] . Femal es Mid-F ollic ular: 2.4-1 2.6 mIU/m L Mid-C ycle: 14.0- 95.6 mIU/m L Mid-L uteal : 1.0-1 1.4 mIU/m L Postm enopa use: 7.7-5 8.5 mIU/m L Not Available [facility] (Lab) [address], [place], [address], 03/21/2023 01:20:36 03/20/19 24 03/20/2023 IMAGE GUIDE D PAP AND HPV REGAR DLESS image guided Pap, HPV regardless of Pap result SEE RESULT S BELOW CASE REPOR T: Cytol ogy Gynec ologi ольга Repor t Case: [id number] Autho moshe g Provi jeff: Celine Villatoro NP Colle cted: 03/20 1346 Order ing Locat ion: [place] Patho logy Recei shayy: 03/21 0546 First Scree n: Antonette José een: Bobby Simon, CT Speci men: Jose M slaughter Pap - Image d, Cervi x STATE MENT OF ADEQU ACY: Satis facto ry for evalu ation Trans forma tion zone compo nent absen t The absen ce of an endoc ervic al compo nent was confi rmed by an addit ionmartin ware. FINAL DIAGN OSIS: Negat matias for Intra epith elial Debra norris or Angela hadley (NIL) . Elect diandra latham d by Bobby Simon, CT on 024 at 2:38 PM ----- ----- ----- ----- ----- ----- ----- ----- ----- ----- ----- ----- ----- ----- ----- ----- ----- ---- HPV RESUL TS: HPV mRNA E6/E7 : No HPV mRNA Detec kika NOTE: This high risk HPV mRNA assay detec ts fourt een high- risk HPV types (16, 18, 31, 33, 35, 39, 45, 51, 52, 56, 58, 59, 66, 68) witho ut diffe renti ation . COMME NT: This speci men was revie wed by a Cytot echno logis t and/o r Patho logis t (as indic ated in this repor t) after evalu ation using the Thinp rep Imagi ng Syste m. CLINI ОЛЬГА INFOR MATIO N: Menst rual Statu s: LMP (if appli cable ): Clini ольга Histo ry/Pr eviou s Pap: Type of Neopl morris (if appli cable ): Signi fican t Clini ольга Findi ngs: Other Histo ry: Hormo isaac (if appli cable ): PAP EDUCA MANNY L NOTE: The Pap Test is a scree kasandra test with an inher ent false negat matias rate. Liqui d-bas ed sampl ing may decre ase, but will not elimi cas, false negat matias resul ts. A negat matias resul t does not precl ude the prese nce and/o r devel opmen t of disea se, since the prese nce of abnor mal cells in the sampl e depen ds on the locat ion of the lesio n and sampl ing techn ique. Flor nued regul ar scree kasandra is the best metho d of cance r preve ntion . If repor kika cytol ogic findi ng do not corre late with physi ольга and/o r histo rical findi ngs, furth er inves tigat ion is recom farrah d, as clini ana cristina muñoz nted. Not Available [facility] (Lab) [address], [place], [address], 03/22/2023 15:41:39 03/25/19 24 03/25/2023 CULTU RE: URINE result report SEE RESULT S BELOW Test: Cultu re: Urine Speci men Sourc e: Urine Voide d Speci men Type: Urine Speci men Date: 2023 4:34 PM Resul t Date: 2023 6:13 AM Resul t Statu s: Final resul t Abnor mal: No Resul ting Lab: [facility] [address] [address] Tel: [phone] CULTU RE ----- ----- ----- --- No growt h in 1 day (dete ction level of 10,00 0 colon ies / ml.) Not Available [facility] (Lab) [address], [place], [address], 03/27/2023 07:18:11 03/25/19 24 03/25/2023 pregn jose juan test, urine HCG negati ve Not Available [place] [address], [place], [address], 03/25/2023 15:29:22 02/28/19 23 02/28/2022 MAMMO , diagn ostic , digit al, bilat eral No observ ation record ed. [email or web address] [facility] [address], [place], [address], 02/28/2022 15:37:06 02/28/19 23 02/28/2022 MAMMO , diagn ostic , digit al, bilat eral No observ ation record ed. [facility] [address], [place], [address], 02/28/2022 17:11:42 03/13/19 23 03/12/2022 MAMMO , diagn ostic , digit al, bilat eral No observ ation record ed. [email or web address] [facility] [address], [place], [address], 06/25/2022 10:33:38 03/29/19 23 03/29/2022 dominique MONTALVO bilat eral, compl ete No observ ation record ed. [facility] [place], [address], 04/03/2022 10:11:06 04/12/19 23 04/11/2022 biops y, breas t, w/ ultra sound sadaf nce (PROC ) No observ ation record ed. [address], [place], [address], 06/25/2022 12:12:51 04/12/19 23 04/11/2022 biops y, breas t, w/ ultra sound sadaf nce (PROC ) No observ ation record ed. [address], [place], [address], 06/25/2022 12:13:44 04/13/19 23 04/11/2022 biops y, breas t, w/ ultra sound sadaf nce (PROC ) No observ ation record ed. [address], [place], [address], 06/25/2022 12:15:48 04/13/19 23 04/11/2022 biops y, breas t, w/ ultra sound sadaf nce (PROC ) No observ ation record ed. [address], [place], [address], 06/25/2022 12:16:14 04/17/19 24 04/17/2023 imagi ng inter preta tion No observ ation record ed. [address] [facility] [address], [place], [address], 04/17/2023 12:04:45 04/17/19 24 04/17/2023 MAMMO , diagn ostic , digit al, bilat eral No observ ation record ed. [facility] [address], [place], [address], 04/18/2023 09:24:50 05/02/19 24 05/02/2023 MAMMO , diagn ostic , digit al, bilat eral No observ ation record ed. [address], [address], 05/06/2023 10:29:41 05/02/19 24 05/02/2023 MAMMO , scree kasandra, bilat [email or web address] No observ ation record ed. [email or web address] [facility] [address] [place], [address], 05/19/2024 20:29:35 06/20/19 25 06/19/2024 imagi ng/di agnos tic resul t No observ ation record ed. [facility] [address], [address], 06/23/2024 07:41:34 Result Notes None recorded. Problems Name Problem SNOMED Code Status Onset Date Resolution Date Notes Provider Name and Address Organization Details Recorded Time SNOMED CT Concept Completed 201509/28/2020 Encntr for general adult medical exam w/o abnormal findings ;Practic e ID: 0001 Khushbu dumont [facility] 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 17:20:22 Screenin g for malignan t neoplasm of rectum Completed 201509/28/2020 Encounte r for screenin g for malignan t neoplasm of rectum;P ractice ID: 0001 Khushbu dumont [facility] 17:20:17 Kidney disease [id number] Completed 201809/28/2020 Disorder of kidney and ureter, unspecif ied;Prac benedicto ID: 0001 Khushbu Monsivais [facility] 17:20:[address] Concept Completed 201809/28/2020 Encntr for routine child health exam w/o abnormal findings ;Practic e ID: 0001 Khushbu dumont [facility] 1 17:20:20 Screenin g for malignan t neoplasm of cervix Completed 201609/28/2020 Screenin g for malignan t neoplasm s of the cervix;R ecorded Elsewher e: No Locat ion: [facility] S ource: [employer] latisha: N Practi ce ID: 0001 Lukas lable Time: 04:45:00 PM Khushbu Courtneytz julia, [facility] 1 17:20:15 Speciali zed medical examinat ion Completed 201209/28/2020 Gynecolo gical Examinat ion;Remington rded Elsewher e: No Locat ion: [facility]ce[facility] latisha: N Rochelleti ce ID: 0001 Lukas lable Time: 08:30:00 AM Khushbu Monsivais julia, [facility] 1 17:20:28 Family planning surveill ance Completed 201209/28/2020 Surveill ance of other contrace ptive method;R ecorded Elsewher e: No Locat ion: [facility] S ource: [facility] latisha: N Rochelleti ce ID: 0001 Lukas lable Time: 08:30:00 AM Khushbu dumont, [facility] [address] 17:19:[address] Concept Completed 201509/28/2020 Encounte r for surveill ance of other contrace ptives;R ecorded Elsewher e: No Locat ion: [facility] S ource: [employer] latisha: N Practi ce ID: 0001 Lukas lable Time: 03:45:00 PM Khushbu Courtneytz julia, [facility] 1 17:20:26 Removal of intraute rine device Completed 201509/28/2020 REMOVAL OF IUD;Remington rded Elsewher e: No Locat ion: [facility] S ource: [facility] latisha: N Practi ce ID: 0001 Lukas lable Time: 03:45:00 PM Khushbu Courtneytz julia, [facility] 17:20:12 Body mass index 30+ - obesity [id number] Completed 201609/28/2020 Body mass index (BMI) 34.0-34. 9, adult;Re corded Elsewher e: No Locat ion: [facility] S ource: [facility] latisha: N Practi ce ID: 0001 Lukas lable Time: 04:45:00 PM Khushbu Courtneytz [facility], [facility] 17:19:37 Adult health examinat ion Completed 201409/28/2020 ROUTINE MEDICAL EXAM;Rec orded Elsewher e: No Locat ion: [facility] S ource: [facility] latisha: N Practi ce ID: 0001 Lukas lable Time: 03:30:00 PM Khushbu Monsivais [facility], [facility] 17:19:35 Contrace ptive sheath status [id number] Completed 201509/28/2020 IUD follow up;Recor ded Elsewher e: No Locat ion: [facility] S ource: [facility] latisha: N Practi ce ID: 0001 Lukas lable Time: 04:00:00 PM Khushbu Courtneytz julia, [facility] 17:19:39 Insertio n of intraute rine contrace ptive device Completed 201509/28/2020 Encounte r for insertio n of intraute rine contrace ptive device;R ecorded Elsewher e: No Locat ion: [facility] S ource: [facility] latisha: N Practi ce ID: 0001 Lukas lable Time: 03:45:00 PM Khushbu Monsivais julia, [facility] 17:19:43 Pregnanc y test negative [id number] Completed 201509/28/2020 Encounte r for pregnanc y test, result negative ;Recorde d Elsewher e: No Locat ion: [place] [facility] S ource: [employer] latisha: N Practi ce ID: 0001 Lukas lable Time: 03:45:00 PM Khushbu dumont, [facility] 17:20:09 Problem Notes None recorded. Procedures Surgical History Date Name Laterality Status Provider Name and Address Organization Details Recorded Time 03/25/19 24 IUD Removal completed Celine Villatoro DAY[facility] [address], [place], [address], [facility] 03/25/2023 15:39:20 03/20/19 24 Date of Last Pap Smear completed Khushbu Monsivais [facility] 03/20/2023 12:25:23 04/12/19 23 Breast Biopsy completed Khushbu Monsivais [facility] 03/19/2023 12:00:08 02/11/19 20 completed Khushbu Monsivais [facility] 09/29/2020 12:06:54 02/11/19 20 Colonoscopy completed Khushbu Monsivais [facility] 09/28/2020 17:22:04 02/11/19 17 procedure on foot completed Khushbu Monsivais [facility] 01/30/2022 15:10:48 02/11/19 17 procedure on foot completed Khushbu Monsivais [facility] 03/25/2023 15:27:12 02/11/19 08 cholelithotomy completed Khushbu Monsivais [facility] 09/28/2020 17:21:54 02/11/19 06 termination of completed Khushbu Monsivais [facility] 05/02/2021 17:14:30 Imaging Results Imaging Date Name Status LastModified by Organization Details LastModified Time 02/28/2022 MAMMO, diagnostic, digital, bilateral completed [email or web address] [place] [facility] [address], [place], [address], 02/28/2022 15:37:06 02/28/2022 MAMMO, diagnostic, digital, bilateral completed [facility] [address], [place], [address], 02/28/2022 17:11:42 03/12/2022 MAMMO, diagnostic, digital, bilateral completed [address], [place], [address], 06/25/2022 10:33:38 03/29/2022 US, breast, bilateral, complete completed [address], [address], 04/03/2022 10:11:06 04/11/2022 biopsy, breast, w/ ultrasound guidance (PROC) completed [address], [address], 06/25/2022 12:12:51 04/11/2022 biopsy, breast, w/ ultrasound guidance (PROC) completed [address], [address], 06/25/2022 12:13:44 04/11/2022 biopsy, breast, w/ ultrasound guidance (PROC) completed [address], [address], 06/25/2022 12:15:48 04/11/2022 biopsy, breast, w/ ultrasound guidance (PROC) completed [address], [address], 06/25/2022 12:16:14 04/17/2023 imaging interpretation completed [address], [place], [address], 04/17/2023 12:04:45 04/17/2023 MAMMO, diagnostic, digital, bilateral completed [facility] [address], [place], [address], 04/18/2023 09:24:50 05/02/2023 MAMMO, diagnostic, digital, bilateral completed [facility] [address], [address], 05/06/2023 10:29:41 05/02/2023 MAMMO, screening, bilateral completed [email or web address] [address], [address], 05/19/2024 20:29:35 06/19/2024 imaging/diagnostic result completed [facility] [address], [address], 06/23/2024 07:41:34 Procedure Notes None recorded. Medical Equipment None Reported. Allergies No known drug allergies Medications Name Sig Start Date Stop Date Status Note LastModified by Organization Details LastModified Time latanopro st 0.005 % eye drops INSTILL 1 DROP IN EACH EYE AT BEDTIME active Not Available Not Available No t Available Mirena 21 mcg/24 hr (up to 8 years) 52 mg intrauter ine device Take by intraute rine route. 2015 active MIRENA INSERTED 05/18/2015 AND NEEDS REMOVED 05/17/2022 Not Available Not Available Not Available tizanidin e 2 mg tablet TAKE 1 TABLET BY MOUTH EVERY DAY NEEDED FOR MUSCLE SPASTICI TY 09/28 completed Not Available Not Available Not Available ibuprofen 800 mg tablet TAKE 1 TABLET BY MOUTH EVERY 8 HOURS NEEDED active Not Available Not Available No t Available lisinopri l 20 mg tablet TK 1 T PO D 01/30 completed Not Available Not Available Not Available azathiopr ine 50 mg tablet TAKE 1 TABLET BY MOUTH TWICE DAILY active Not Available Not Available No t Available acetamino phen 300 mg-codein e 30 mg tablet TAKE 1 TABLET BY MOUTH EVERY 6 HOURS NEEDED FOR PAIN active Not Available Not Available No t Available Metrogel Vaginal 0.75 % (37.5 mg/5 gram) insert 1 applicat orful by vaginal route every day at bedtime for 5 nights 09/18 completed Prescrib ed Elsewher e: No Locat ion: [facility] odify By: meera Encounte r DateTime : 09/15/19 17 03:47:39 PM Not Available Not Available Not Available Depo-Prov era 150 mg/mL intramusc ular suspensio n inject 1 millilit er (150MG) by intramus cular route every 3 months 07/08 completed Prescrib ed Elsewher e: No Locat ion: [facility] odify By: irving Mejia nter DateTime : 07/09/19 13 08:30:00 AM Not Available Not Available Not Available phenazopy ridine 100 mg tablet TAKE ONE TABLET BY MOUTH THREE TIMES DAILY NEEDED FOR PAIN 09/28 completed Not Available Not Available Not Available cephalexi n 500 mg capsule TAKE 1 CAPSULE BY MOUTH EVERY 12 HOURS 09/28 completed Not Available Not Available Not Available lisinopri l 10 mg tablet TK 1 T PO D 05/03 completed Not Available Not Available Not Available polymyxin B sulfate 10,000 unit-trim ethoprim 1 mg/mL eye drops INSTILL 1 DROP IN RIGHT EYE EVERY 4 HOURS WHILE AWAKE FOR 7 DAYS. DO NOT EXCEED 6 DOSES IN 24 HOURS active Not Available Not Available No t Available hydroxych loroquine 200 mg tablet TAKE 2 TABLETS BY MOUTH DAILY active Not Available Not Available No t Available lisinopri l 40 mg tablet active Not Available Not Available Not Available multivita min capsule take 1 capsule by oral route every day 09/11 completed Prescrib ed Elsewher e: Yes Loca tion: [facility] odify By: meera Aguilarte r DateTime : 07/30/19 14 03:30:00 PM Not Available Not Available Not Available amoxicill in 500 mg-potass ium clavulana te 125 mg tablet TAKE 1 TABLET BY MOUTH EVERY 12 HOURS 01/30 completed Not Available Not Available Not Available cyclobenz aprine 5 mg tablet TAKE 1 TABLET BY MOUTH THREE TIMES DAILY NEEDED active Not Available Not Available No t Available Climara 0.06 mg/24 hr transderm al patch apply 1 patch by transder mal route every week 07/08 completed Prescrib ed Elsewher e: No Locat ion: [facility] odify By: lbdoritahar tz Encou nter DateTime : 06/12/19 12 03:15:00 PM Not Available Not Available Not Available metoprolo l tartrate 25 mg tablet TAKE 1 TABLET BY MOUTH TWICE DAILY active Not Available Not Available No t Available nitrofura ntoin monohydra te/macroc rystals 100 mg capsule TAKE 1 CAPSULE BY MOUTH EVERY 12 HOURS FOR 5 DAYS 09/28 completed Not Available Not Available Not Available duloxetin e 60 mg capsule,d elayed release TAKE ONE CAPSULE BY MOUTH TWICE DAILY active Not Available Not Available No t Available chlorhexi dine gluconate 0.12 % mouthwash RINSE AREA BEHIND TEMPORAR Y WITH MONOJET SYRINGE OF RINSE active Not Available Not Available No t Available Eye Drops (with povidone) 0.05 %-0.1 %-1 %-1 % 09/11 completed Prescrib ed Elsewher e: Yes Loca tion: [facility] M odify By: meera garcia DateTime : 07/30/19 14 03:30:00 PM Not Available Not Available Not Available hydrochlo rothiazid e 12.5 mg tablet TAKE 1 TABLET BY MOUTH DAILY active Not Available Not Available No t Available Vitals Date Recorded Body height Body mass index (BMI) Body weight Systolic blood pressure Diastolic blood pressure Provider Name and Address Organization Details Last Updated DateTime 05/03/2021 162.56 cm 34.8 kg/m2 91244.25 g 137 mm[Hg] 83 mm[Hg] Khushbu Monsivais [facility] 12:25:47 Date Recorded Body height Body mass index (BMI) Body weight Systolic blood pressure Diastolic blood pressure Provider Name and Address Organization Details Last Updated DateTime 01/30/2022 162.56 cm 35.5 kg/m2 25903.62 g 129 mm[Hg] 89 mm[Hg] Khushbu Monsivais [facility] 2 15:09:41 Date Recorded Body height Body mass index (BMI) Body weight Systolic blood pressure Diastolic blood pressure Systolic blood pressure Diastolic blood pressure Provider Name and Address Organization Details Last Updated DateTime 4 162.56 cm 35.4 kg/m2 49838.4 7 g 95 mm[Hg] 66 mm[Hg] 100 mm[Hg] 70 mm[Hg] Khushbu Monsivais [facility] 4 12:51:34 Date Recorded Body height Body mass index (BMI) Body weight Systolic blood pressure Diastolic blood pressure Provider Name and Address Organization Details Last Updated DateTime 03/25/2023 162.56 cm 35.6 kg/m2 25004.34 g 103 mm[Hg] 71 mm[Hg] Khushbu Monsivais [facility] 4 15:13:25 Social History Question Answer Notes LastModified by Organizat ion Details LastModified Time Tobacco Smoking Status Never Smoker Eleuterio dumont, [facility] 01/30/2022 14:40:36 Do You Have An Advance Directive? No [email or web address] Information n ot available 09/28/2020 How Many Years Have You Consumed Alcohol? 30 [email or web address] Information not available 05/03/2021 Are You Blind Or Do You Have Difficulty Seeing? No [email or web address] Information n ot available 09/28/2020 What Is Your Level Of Caffeine Consumption? Moderate [email or web address] Information not available 09/28/2020 How Much Tobacco Do You Chew? None [email or web address] Information not available 05/03/2021 In The 14 Days Before Symptom Onset, Have You Had Close Contact With A Laboratory-confirm ed COVID-19 While That Case Was Ill? No [email or web address] Information n ot available 09/28/2020 In The 14 Days Before Symptom Onset, Have You Had Close Contact With A Person Who Is Under Investigation For COVID-19 While That Person Was Ill? No [email or web address] Information not available 09/28/2020 Have You Been To An Area Known To Be High Risk For COVID-19? No [email or web address] Information not available 09/28/2020 Are You Deaf Or Do You Have Serious Difficulty Hearing? No Information not available 09/28/2020 What Type Of Diet Are You Following? REGULAR fexszfys27 Information n ot available 09/28/2020 What Is The Highest Grade Or Level Of School You Have Completed Or The Highest Degree You Have Received? [id number] [email or web address] Information not available 09/28/2020 Are There Any Guns Present In Your Home? No [email or web address] Information not available 09/28/2020 Have You Ever Been Counseled For Unhealthy Alcohol Use? No Information not available 01/30/2022 Do You Use Protection During Sex? No [email or web address] Information not available 09/28/2020 Do You Use Your Seat Belt Or Car Seat Routinely? Yes [email or web address] Information not available 09/28/2020 Do You Have Smoke And Carbon Monoxide Detectors In Your Home? Yes [email or web address] Information not available 09/28/2020 How Much Tobacco Do You Smoke? No Information not available 09/28/2020 Do You Use Sunscreen Routinely? No mqdxlbju84 Information not available 09/28/2020 Has Tobacco Cessation Counseling Been Provided? No [email or web address] Information not available 01/30/2022 Have You Used IV Drugs? No [email or web address] Information not available 09/28/2020 Do You Have Difficulty Walking Or Climbing Stairs? No [email or web address] Information not available 01/30/2022 Sex: Unknown Functional Status Question Answer Note LastModified by Organizat ion Details LastModified Time Do you use any illicit or recreational drugs? No [email or web address] Information not available 09/28/2020 Do you or have you ever used any other forms of tobacco or nicotine? No [email or web address] Information not available 01/30/2022 What is your level of alcohol consumption? Occasional [email or web address] Information not available 09/28/2020 Are you able to walk? YESWOREST jffqooxk41 Information not available 09/28/2020 Are you able to care for yourself? Yes ywsalx88 Information n ot available 01/30/2022 What is your occupation? [employer] lltudlfp43 Information not available 09/28/2020 Do you have difficulty dressing or bathing? No [email or web address] Information not available 01/30/2022 What is your exercise level? Occasional [email or web address] Information not available 09/28/2020 Mental Status Question Answer Note LastModified by Organization D etails LastModified Time Do you feel stressed (tense, restless, nervous, or anxious, or unable to sleep at night)? [id number] piieuehr50 Information not available 09/28/2020 Family History Relationship Description Onset Age of this Age Resolved Age Notes LastModified by Organization Details LastModified Time Mother Hypertensive disorder [email or web address] Not available 09/28 12:34:38 Sister Hypertensive disorder [email or web address] Not available 09/28 12:34:38 Sister Cerebrovascu lar accident [email or web address] Not available 12:34:48 Paternal Aunt Malignant tumor of breast [email or web address] Not available 09/28 19:37:31 Notes:Mother: Hypertension S ister: Hypertension, Stroke Medical History Condition Response Allergies (Food, seasonal, environmental ) N Other N Breast Cancer N Drug/Latex Allergies/Reactions N Blood Transfusion N Dermatologic Disorders N Lung Disease N Defects or Inherited Disease N Breast Problem Y Gestational Diabetes N Hematologic disorders N Anesthesia Complications N History of STI N Deep Vein Thrombosis N Polycystic ovary syndrome N Anxiety Disorder N Autoimmune disease Y Arthritis Y Infertility N Polyps N Acid Reflux (GERD) N History of abnormal pap N Cancer N Stroke N Varicosities N Neurologic/Epilepsy Y Endometriosis N High Cholesterol N Headaches N Fibromyalgia N Kidney Disease Y Heart Problems N Kidney or Bladder Problems Y Thyroid Problems N GI Problems Y Eating Disorder N Anemia N Art (IVF or FET) N Psychiatric Illness N Ovarian Cancer N Diabetes N Pulmonary (TB, Asthma) N Hepatitis/Liver Disease N No Past Medical History N Eczema N Urinary Tract Infection N Abuse/Domestic Violence N Asthma N Trauma/Violence N Depression/ depression N Heart Disease N Pre-Eclampsia N Hypertension Y Osteoporosis N Thrombophilias N Gynecological History Statement/Question Response Abnormal Pap N Date of Last Mammogram Date of LMP 02/11/2010 N STIs/STDs N Was last menstrual period normal Y HPV Vaccine N Current Control Method Menopause Most Recent Bone Density Sexually Active? Y IUD Age of first menstrual cycle 13 Date of Last Pap Smear 03/20/2023 Sexual Problems? N LMP Unknown 02/11/2019 N Obstetrics History GPAL:G 1 P 0 0 1 0 Type Value Induced 1 Living 0 Total 1 Past Encounters Encounter ID Performer Location Encounter Start Date Encounter Closed Date Diagnosis/Indication Diagnosis SNOMED-CT Code Diagnosis ICD10 Code Diagnosis Note [id number] Arpita Patterson [facility] [address],[place] [address] 09/28/2020 16:53:05 09/28/2020 17:25:25 Gynecologic examination 60861193 Z01.419 [id number] Arpita Patterson [facility] [address],[place] [address] 05/03/2021 12:14:33 05/03/2021 13:42:42 [id number] Arpita Patterson [place] [address],[place] [address] 05/03/2021 12:15:22 05/03/2021 13:43:08 Uses IUD (intrauterine device) contraception 506255780 Z97.5 [id number] MONIQUE Zacarias [place] [address],[place] [address] 01/30/2022 14:40:27 01/30/2022 16:27:48 Breast lump 23198708 N63.0 Gynecologi c examination 42771900 Z01.419 Take Calcium with Vitamin D 12-1500mg daily. Do monthly self breast exams. It is advised to get annual flu shot in the fall and she could obtain at [facility] or [facility] clinic. If you haven't received the Tdap vaccine in the last 10 years you should obtain one as well. Have mammogram yearly, bone density every 2-3 years and colonoscop y every 5-10 years depending on findings and history. Engage in daily exercise of low impact aerobic exercise 45-60 minutes 4-5 times weekly. Avoid tobacco and illicit drugs as well as using moderation with alcohol intake less than 1-2 8 oz beverages daily. This lifestyle behavior pattern will lead to less health conditions and longer life span. If BMI greater than 25 weight watchers or dietary consult advised. Questions have been answered. Patient appears to understand instructio ns, but if you have any further questions call or respond to this email WWEMedical hx : Lupus, HTN, glaucomaMi ramya IUD, inserted 05/18/2015 - due for removal 05/2023(+) IUD strings on examNo hx of abnormal papsPap done today per patient preference STI testing declinedBi lateral breast lumps felt at 12 o'clock, about 1cm in size, fibrocysti c breast in outer quadrants. Diagnostic imaging ordered.Co lonoscopy UTDUTD with PCPRTC in 1 year or sooner if needed [id number] MONIQUE Zacarias [place] [address] [address] 03/20/2023 12:13:14 03/20/2023 14:37:57 Gynecologic examination 23072849 Z01.419 WWEpap updateddec lined STI screeningr epeat diagnostic mammogram w/ u/s ordered per breast specialist recommenda tion - also noted to have left breast lumps at 12 oclock on exam.colon oscopy UTDroutine labs UTD/PCP Take Calcium with Vitamin D daily. Do monthly self breast exams. It is advised to get annual flu shot in the fall and she could obtain at [facility] or [facility] care clinic. If you haven't received the Tdap vaccine in the last 10 years you should obtain one as well. Have mammogram yearly, bone density every 2-3 years and colonoscop y every 5-10 years depending on findings and history. Engage in daily exercise of low impact aerobic exercise 45-60 minutes 4-5 times weekly. Avoid tobacco and illicit drugs. This lifestyle behavior pattern will lead to less health conditions and longer life span. If BMI greater than 25 dietary consult advised. Questions have been answered. Patient appears to understand instructio ns, but if you have any further questions call or respond to this email [facility] [id number] Z30.9 will check FSH today to determine if IUD replacemen t neededwill reach out to pt with results Breast lump [id number] N63 .0 [id number] MONIQUE Zacarias [place] [address] [address] 03/25/2023 14:47:43 03/25/2023 15:53:13 Screening procedure 61039406 Z13.9 Removal of intrauterine contraceptive device 1518285096 Z30.432 reviewed updated labsIUD removal completed (see procedure note)preca utions reviewed Urinary symptoms 0610899 08 R39.9 urine cx sent Time spent in visit is a total of 15 mins with at least 50% of visit consisting of counseling and review of plan of care. Increased frequency of urination 107621469 R35.0 Health Concerns Section Related Observation LastModified by Organization Detai ls LastModified Time None Recorded Concern Status LastModified by Organization Details LastModified Time None Recorded Advance Directives Directive N: Payers Encounter Date Sequence Insurance Name Policy Number Policy Navarro Covered Member ID Navarro Member ID Guarantor Name 05/03/2021 1 [place] 33D evidanza [id number] Lamar Bunhc 05/03/2021 1 [place] 33D evidanza [id number] Lamar Bunch 01/30/2022 1 [place] 33D evidanza [id number] Lamar Bunch 03/20/2023 1 [place] 33D evidanza [id number] Lamar Bunch 03/25/2023 1 [place] 33D evidanza [id number] Shozu Notes Date Note Type Note Provider Name and Address Organization Details Recorded Time 05/03/2021 text/html Patient presents for IUD insertion., not until next year, reviewed 7 years with mirena IUD, also pt has had no bleeding with IUD, discussed checking for menopause or replacing, pt would like to check labs first Arpita Patterson CNM [address], [place], [address], [facility] 05/03/2021 13:31:37 05/03/2021 text/html 2 notes open Arpita Patterson CNM [address], [place], [address], [facility] 05/03/2021 13:29:53 01/30/2022 text/html Annual GYNReport ed bypatient.Menstrual cycle:Normal menses Urinary symptoms:No hematuria; No incontinence Vulva:No genital lesion Vagina:Normal vaginal discharge Breast:No breast pain; No breast lump; No nipple discharge Current Contraception:Satisf ied with current contraception; Intrauterine device (iud) Sexual complaints:No sexual complaints; No pain during intercourse; Normal libido Menopausal Symptoms:No menopausal symptoms; Normal vaginal lubrication Psychological symptoms:No depression; No anxiety; No PMDD Preventive measures:Encourage self breast examination; Encourage regular exercise; Encourage no tobacco use; Encourage regular mammograms starting age 40 MONIQUE Zacarias [address], [place], [address], [facility] 01/30/2022 16:16:52 03/20/2023 text/html Annual GYNReport ed bypatient.Menstrual cycle:Normal menses Urinary symptoms:No hematuria; No incontinence Vulva:No genital lesion Vagina:Normal vaginal discharge Breast:No breast pain; No breast lump; No nipple discharge Current Contraception:Satisf ied with current contraception; Intrauterine device (iud); mirena IUD, inserted 05/18/2015 - will 05/18/2023 Sexual complaints:No sexual complaints; No pain during intercourse; Normal libido Menopausal Symptoms:No menopausal symptoms; Normal vaginal lubrication Psychological symptoms:No depression; No anxiety; No PMDD Preventive measures:Encourage self breast examination; Encourage regular exercise; Encourage no tobacco use; Encourage regular mammograms starting age 40Notes:last pap 01/2022 - normal3/02/2022 right breast biopsy done (dense stromal fibrosis with focal sclerosing adenosis, no atypical or malignant findings) told to repeat mammogram w/ u/s in 1 yrmirena IUD d/t 05/2023FSH done last year suggested menopausemedical hx: Lupus, arthritis, HTN, Kidney disease, glaucoma MONIQUE Zacarias [address], [place], [address], [facility] 03/20/2023 14:25:35 03/25/2023 text/html 52yopresents for IUD removalcurrent Mirena IUD d/t ecent labs with FSH of 77has noticed some urinary frequency/slight discomfort over the last few daysno flank pains, no n/v/f, no flu-like symptoms Khushbu dumont, [facility] 03/25/2023 16:59:57 OBGyn Episode Ob Episode Information Episode Created Date Number of Fetuses Patient Bloodtype Patient rh Status Prepregnancy Weight lbs Domestic Partner Domestic Partner Phone Father Name Cook Italian Style Food Status 09/29/19 21 1 CLOSED Fetus Data First Name Last Name Admitted to NICU Weight (g) Sex Living Outcome Pediatric Complications Fetus ID Race Codes Race Delivery Type , Induced [id number] Michelet Calculation Initial Michelet Date Initial Exam Date Initial Exam Provider Initial Ultrasound Date Last Menstrual Period Date Ultra Sound Weeks Gestation 0 Eighteen To Twenty Week Michelet Update Ultra Sound Date Fundal Height At Umbil Quickening Date Ultra Sound Latest Weeks Gestation Final Michelet Confirmed By Final Michelet Confirmed Date Final Michelet Date Ultra Sound Latest Days Gestation 0 0 Menstrual History Last Menstrual Date Menses Monthly On Bcp Conception Prior Menses Frequency Hcg Plus Date Menarche Onset Age Delivery Information Delivery Date Delivery Type Labor Anesthesia Weeks Gestation Incision Type Labor Labor Length Hrs Delivered By Post Complications Tubal Sterilization Discharge Date Comments 6 Discharge Information Feeding Method Contraceptive Method Maternal HG B and HCT Levels
--- OUTSIDE RECORDS SUMMARY | 2024-07-01 11:43 | XMS_ITS | Encounter Summary ---
Author Organization [facility] Healthcare Address [address] [place] [address] Care Team Providers Care Business Services Manager Name Role Phone Unavailable Primary Care Provider Unavailabl e Reason for Visit * Diagnostic Imaging (Routine) - Closed Specialty Diagnoses / Procedures Referred By Jenny t Referred To Contact Procedures Breast Imaging Screening Outside Reference Marina Serrano NP Phone: tel: fax: Referral ID Status Reason Start Date Expiration Date Visits Re quested Visits Authorized [id number] Closed 03/09/2022 04/08/2023 1 1 Encounter Details Date Type Department Care Team (Late st Contact Info) Description 08/21/2018 Hospital Encounter [facility] [place] [address] Social History Tobacco Use Types Packs/Day Years Used Date Smoking Tobacco: Never Smokeless Tobacco: Never Comments Unknown Sex and Gender Information Value Date Recorded Sex Assigned at Not on file Legal Sex Female 1:17 AM GRADUATE STUDIES DEAN Gender Identity Not on file Sexual Orientation Not on file documented as of this encounter Plan of Treatment Not on file documented as of this encounter Procedures Procedure Name Priority Date/Time Associated Diagnosis Comments BREAST IMAGING MG SCREENING OUTSIDE REFERENCE Routine 08/21/2018 12:00 AM CDT documented in this encounter Results * Breast Imaging Screening Outside Reference (08/21/2018 12:00 AM CDT) Impressions RAD_MAMMO_[facility] - 03/09/2022 12:36 PM GRADUATE STUDIES DEAN These images are for Reference purposes only and have not been reviewed by [facility] Radiology. There will be no report generated by a [facility] Radiologist. Narrative [facility]_MAMMO_[facility] - 03/09/2022 12:36 PM GRADUATE STUDIES DEAN EXAMINATION: Images For Reference Purposes Only us Marina Serrano NP IMG MAMMO PROCEDURES Final Result [facility]MAMMO[facility] documented in this encounter Visit Diagnoses Not on filedocumented in this encounter
--- OUTSIDE RECORDS SUMMARY | 2024-07-01 11:43 | XMS_ITS | Clinical Summary ---
Author Organization [facility] Address [address] [place] [address] Care Team Providers Care Cold Reduction Roller Name Role Phone Juanita Oropeza MD Primary Care Provider Celine Villatoro EARLY YEARS TEACHER Unavailable [phone] Allergies No known active allergies Medications tiZANidine [...] Date Abnormal mammogram of both breasts 03/29/2022 Encounters Date Type Department Care Team Description 06/19/2024 3:20 PM CDT - 06/19/2024 11:59 PM CDT Hospital Encounter [facility] Medical Office Bldg 1 Breast [facility] [address] [place] [address] Screening mammogram, encounter for Discharge Disposition: Discharge to home or self care 04/30/2024 Orders Only [facility] Surgery [facility] Floor [address] [place] [address] Nathaly Jara NP Abnormal mammogram of both breasts (Primary Dx) from Last 3 Months Surgical History Surgery Date Site/Laterality Comments BREAST BIOPSY 04/11/2022 Right Family History Medical History Relation Name Comments No Known Problems Mother Relation Name Status Comments Mother Social History Tobacco Use Types Packs/Day Years Used Date Smoking Tobacco: Never Smokeless Tobacco: Never Tobacco Cessation:Counseling Given: Not Answered Comments Unknown Sex and Gender Information Value Date Recorded Sex Assigned at Not on file Legal Sex Female 1:17 AM RESEARCH STAFF MEMBER Gender Identity Not on file Sexual Orientation Not on file Obstetrics History Last Filed Vital Signs Vital Sign Reading Time Taken Comments Blood Pressure - - Pulse - - Temperature - - Respiratory Rate - - Oxygen Saturation - - Inhaled Oxygen Concentration - - Weight 90.7 kg (200 lb) 05/02/2023 1:03 PM CDT Height 165.1 cm (5' 5 ) 05/02/2023 1:03 PM CDT Body Mass Index 33.28 05/02/2023 1:03 PM CDT Plan of Treatment Health Maintenance Due Date Last Done Comments Cervical Cancer Screening 1969 Colon Cancer Screening-Colonoscopy 1969 Depression Screening 1969 Hepatitis C Screening 1969 DTaP/Tdap/Td Vaccine (1 - Tdap) 1980 Hepatitis B Screening 07/07/1987 Regular Well Visit/Exam 18-64 07/07/1987 Pneumococcal vaccine <65 (1 of 2 - PCV) 1988 Zoster Vaccine (1 of 2) 1988 Covid-19 Vaccine ( - season) 2023 09/13/2021, 01/25/2021, 04/15/2020 Influenza Vaccine (Season Ended) 2024 Breast Cancer Screening-Mammogram 06/19/2025 06/19/2024, 05/02/2023, 10/19/2020 Procedures Procedure Name Priority Date/Time Associated Diagnosis [...] nal Result from Last 3 Months Insurance [facility] FEDERAL [facility] FEDERAL Care Teams Cold Reduction Roller Relationship Specialty Start Date End Date Juanita Oropeza MD [address] [place] [address] PCP - General Family Medicine 03/01/22 Celine Villatoro NP [address] [place] [address] Nurse Practitioner Obstetrics and Gynecology 03/01/22
--- OUTSIDE RECORDS SUMMARY | 2024-07-01 11:43 | XMS_ITS | Encounter Summary ---
Author Organization [facility] Healthcare Address [address] [place] [address] Care Team Providers Care Dragline Oiler Name Role Phone Unavailable Primary Care Provider Unavailabl e Reason for Visit * Diagnostic Imaging (Routine) - Closed Specialty Diagnoses / Procedures Referred By Jenny t Referred To Contact Procedures Breast Imaging Screening Outside Reference Marina Serrano NP Phone: tel: fax: Referral ID Status Reason Start Date Expiration Date Visits Re quested Visits Authorized [id number] Closed 03/09/2022 04/08/2023 1 1 Encounter Details Date Type Department Care Team (Late st Contact Info) Description 09/15/2019 Hospital Encounter [facility]iology [facility] [address] [place] [id number] Social History Tobacco Use Types Packs/Day Years Used Date Smoking Tobacco: Never Smokeless Tobacco: Never Comments Unknown Sex and Gender Information Value Date Recorded Sex Assigned at Not on file Legal Sex Female 1:17 AM SPIN TABLE OPERATOR Gender Identity Not on file Sexual Orientation Not on file documented as of this encounter Plan of Treatment Not on file documented as of this encounter Procedures Procedure Name Priority Date/Time Associated Diagnosis Comments BREAST IMAGING MG SCREENING OUTSIDE REFERENCE Routine 09/15/2019 12:00 AM CDT documented in this encounter Results * Breast Imaging Screening Outside Reference (09/15/2019 12:00 AM CDT) Impressions RAD_MAMMO_[facility] - 03/09/2022 12:36 PM SPIN TABLE OPERATOR These images are for Reference purposes only and have not been reviewed by [facility] Radiology. There will be no report generated by a [facility] Radiologist. Narrative RAD_MAMMO_[facility] - 03/09/2022 12:36 PM SPIN TABLE OPERATOR EXAMINATION: Images For Reference Purposes Only us Marina Serrano NP IMG MAMMO PROCEDURES Final Result [facility]MAMMO[facility] documented in this encounter Visit Diagnoses Not on filedocumented in this encounter
--- OUTSIDE RECORDS SUMMARY | 2024-07-01 11:43 | XMS_ITS | CONTINUITY OF CARE DOCUMENT ---
Author Name richard richard Address Unknown Organization [facility] Address [address] [place] [address] [address] [place] [address] Phone [phone] Care Team Providers Care Pulp Mixer Name Role Phone Luke ARITA, Vernell Unavailable RASHEEDA HEMPHILL MD Unavailable [phone] RASHEEDA HEMPHILL MD Unavailable [phone] PROBLEMS Condition Status Date Provider Notes Palpitations active Venessa Grace INSURANCE PROVIDERS Payer name Policy type / Coverage type [place] red green party ID [facility] [id number] HISTORY OF PROCEDURES Procedure Date Procedure Name Provider Procedure Notes S tatus Holter, 24 or 48 Vernell Butler MD com pleted
--- OUTSIDE RECORDS SUMMARY | 2024-07-01 11:43 | XMS_ITS | Clinical Summary ---
Author Organization [facility] [employer] Address [address] [place] [address] Care Team Providers Care Comfort Advisor Name Role Phone Unavailable Primary Care Provider Unavailabl e Source Comments [facility] [employer],non-owned Affiliates and Associated Physician Practices is amultiple site organization consisting of ambulatory clinics and hospital sitesin [place], [place], [place] and [place]. This disclosure is being madepursuant to the Care Everywhere program and may not contain all information available regarding this patient. Last updated 17.[facility] [employer] Allergies No known active allergies Medications * Be aware that medications may not be up to date on this document. Alwaysverify current medications with the patient. DiltiaZEM HCl Coated Beads (CARTIA XT PO) Activ e hydroCHLOROthiaz zakiya (HYDRODIURIL) 25 MG tablet Take 25 mg by mouth once daily Active naproxen (NAPROSYN) 500 MG tablet Take 1 Tab by mouth 2 times daily as needed for Pain 60 Tab 03/08/2016 Active oxyCODONE-acetam inophen (PERCOCET) 10-325 MG tablet Take 1 Tab by mouth every 6 hours as needed for Pain 30 Tab 03/08/2016 Active Social History Tobacco Use Types Packs/Day Years Used Date Smoking Tobacco: Never Alcohol Use Standard Drinks/Week Comments Yes 0 (1 standard drink = 0.6 oz pur e alcohol) socially Comments No Sex and Gender Information Value Date Recorded Sex Assigned at Not on file Legal Sex Female 6:14 AM CHILD ADVOCATE Gender Identity Not on file Sexual Orientation Not on file Last Filed Vital Signs Vital Sign Reading Time Taken Comments Blood Pressure 131/84 03/08/2016 11:05 AM CHILD ADVOCATE Pulse 88 03/08/2016 11:05 AM CHILD ADVOCATE Temperature 36 C (96.8 F) 03/08/2016 10:05 AM CHILD ADVOCATE Respiratory Rate 12 03/08/2016 11:05 AM CHILD ADVOCATE Oxygen Saturation 95% 03/08/2016 11:05 AM CHILD ADVOCATE Inhaled Oxygen Concentration - - Weight 90.7 kg (200 lb) 03/05/2016 2:31 PM CHILD ADVOCATE Height 165.1 cm (5' 5 ) 03/05/2016 2:31 PM CHILD ADVOCATE Body Mass Index 33.28 03/05/2016 2:31 PM CHILD ADVOCATE Plan of Treatment Health Maintenance Due Date Last Done Comments COLOGUARD (AGES 45-75) - COL ON CA SCREENING 1969 COLON MONITORING 1969 COLONOSCOPY - COLON CA SCREENING 1969 CT COLONOGRAPHY - COLON CA SCREENING 1969 Colorectal Cancer Screening 1969 FIT - COLON CA SCREENING 1969 FLEX SIG - COLON CA SCREENING 1969 LIPID TESTING 1969 MAMMOGRAM 1969 HIV SCREENING 1984 HEPATITIS C SCREENING 07/02/1987 DTAP/TDAP/TD VACCINES (1 - Tdap) 1988 HEPATITIS B VACCINE (1 of 3 - 19+ 3-dose series) 1988 PNEUMOCOCCAL VACCINE 50+ (1 of 1 - PCV) 07/07/2019 ZOSTER VACCINE (1 of 2) 07/07/2019 COVID-19 VACCINE (1 - 2023-2 5 season) 2023 DEPRESSION SCREENING 02/12/2024 INFLUENZA VACCINE (Season Ended) 2024 HIB VACCINE Aged Out No longer eligi ble based on patient's age to complete this topic HPV VACCINE Aged Out No longer eligi ble based on patient's age to complete this topic MENINGOCOCCAL (Group B) VACC INE SHARED DECISION-MAKING Aged Out No longer eligibl e based on patient's age to complete this topic MENINGOCOCCAL GROUPS A/C/Y/W VACCINE Aged Out No longer eligible b ased on patient's age to complete this topic Medical Devices Implanted Type Area Thermal Cutter Helper Device Identifier Shelf Expiration Date Model / Serial / Lot Achilles Speedbridge With Jumpstart Implanted:Qty: 1 on 03/08/2016 by Milton Dwyer MD at [facility] Left: Achilles Tendon [id number] -[id number] / / [id number] Insurance ON LICENSE OF [facility]
--- OUTSIDE RECORDS SUMMARY | 2024-07-01 11:43 | XMS_ITS | Encounter Summary ---
Author Organization [facility] Healthcare Address [address] [place] [address] Care Team Providers Care Records Management Clerk Name Role Phone Unavailable Primary Care Provider Unavailabl e Reason for Visit * Diagnostic Imaging (Routine) - Closed Specialty Diagnoses / Procedures Referred By Jenny t Referred To Contact Procedures Breast Imaging Screening Outside Reference Marina Serrano NP Phone: tel: fax: Referral ID Status Reason Start Date Expiration Date Visits Re quested Visits Authorized [id number] Closed 03/09/2022 04/08/2023 1 1 Encounter Details Date Type Department Care Team (Late st Contact Info) Description 07/24/[address] 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 Gender Identity Not on file Sexual Orientation Not on file documented as of this encounter Plan of Treatment Not on file documented as of this encounter Procedures Procedure Name Priority Date/Time Associated Diagnosis Comments BREAST IMAGING MG SCREENING OUTSIDE REFERENCE Routine 07/24/2017 12:00 AM CDT documented in this encounter Results * Breast Imaging Screening Outside Reference (07/24/2017 12:00 AM CDT) Impressions RAD_MAMMO_[facility] - 03/09/2022 12:37 PM 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 There will be no report generated by a [facility] Radiologist. 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
--- OUTSIDE RECORDS SUMMARY | 2024-07-01 11:43 | XMS_ITS | Clinical Summary ---
Author Organization [facility] Address [address] [place] [phone] Phone Care Team Providers Care Unbundler Name Role Phone Juanita Oropeza MD Primary Care Provider [phone] Allergies No known active allergies Medications azaTHIOprine (IMURAN) 50 MG tablet TK 1 T PO BID 2 9 Active latanoprost (XALATAN) 0.005 % ophthalmic solution INT 1 GTT IN EACH EYE HS 6 9 Active DULoxetine (CYMBALTA) [address] capsule 9 Active hydroxychloroqu ine (PLAQUENIL) 200 MG tablet 9 Active tiZANidine (ZANAFLEX) 2 MG tablet TAKE 1 TABLET BY MOUTH EVERY DAY NEEDED FOR MUSCLE SPASTICITY 0 Active metoprolol tartrate (LOPRESSOR) 25 MG tablet Take 25 mg by mouth 2 (two) times a day 1 Active lisinopril (PRINIVIL) 40 MG tablet Take 1 tablet (40 mg total) by mouth 1 (one) time each day 90 tablet 3 2 Active Active Problems Problem Noted Date Diagnosed Date Essential hypertension 05/12/2018 Lupus erythematosus 05/12/2018 Persistent proteinuria 05/12/2018 Glaucoma 05/12/2018 Non-compliance of drug therapy 03/18/2018 Palpitations 08/12/2016 IUD contraception 08/03/2014 Immunizations Immunization Administration Dates Next Due Influenza TIV (IM) 03/01/2021(Deferred: Patient Refused) Family History Medical History Relation Comments Hypertension Father Hypertension Mother Relation Status Comments Father Mother Social History Tobacco Use Types Packs/Day Years Used Date Smoking Tobacco: Never Smokeless Tobacco: Never Alcohol Use Standard Drinks/Week Comments Yes 1 (1 standard drink = 0.6 oz pur e alcohol) AUDIT-C Answer Date Recorded Frequency of Alcohol Consumption Never 05/12/2018 Average Number of Drinks Not on file 019 Frequency of Binge Drinking Not on file 02/2018 Comments Unknown Sex and Gender Information Value Date Recorded Sex Assigned at Not on file Legal Sex Female 7:53 PM MST Gender Identity Not on file Sexual Orientation Not on file Last Filed Vital Signs Vital Sign Reading Time Taken Comments Blood Pressure 138/88 09/27/2021 3:11 PM CDT Pulse 72 09/27/2021 3:11 PM CDT Temperature 35.4 C (95.8 F) 09/27/2021 3:11 PM CDT Respiratory Rate - - Oxygen Saturation - - Inhaled Oxygen Concentration - - Weight 93 kg (205 lb) 09/27/2021 3:11 PM CDT Height 165.1 cm (5' 5 ) 09/27/2021 3:11 PM CDT Body Mass Index 34.11 09/27/2021 3:11 PM CDT Plan of Treatment Health Maintenance Due Date Last Done Comments Influenza Vaccine (Season Ended) 2024 Insurance [facility] Care Teams Unbundler Relationship Specialty Start Date End Date Juanita Oropeza MD [id number] [place] [id number] PCP - General Internal Medicine 05/12/18
[2024-07-01 12:55] LABS: Basophils Percent Auto 0.5 % (0.2-1.2); Eosinophils Absolute Auto 0.1 K/mm3 (0-0.3); Eosinophils Percent Auto 2.1 % (0-4.4); Hematocrit 41.1 % (37.0-47.0); Hemoglobin 13.1 g/dL (12.0-15.0); Immature Granulocyte Absolute 0.02 K/mm3 (0.00-0.031); Immature Granulocyte Percent A 0.3 % (0-0.5); Lymphocytes Absolute Auto 2.41 K/mm3 (0.9-3.2); Lymphocytes Percent Auto 39.8 % (18.3-44.2); Mean Corpuscular HGB Conc 31.9 g/dl (32-36); Mean Corpuscular Hemoglobin 32.3 pg (26-34); Mean Corpuscular Volume 101.2 fl (80-100); Mean Platelet Volume 10.7 fl (7.4-10.4); Monocytes Absolute Auto 0.3 K/mm3 (0.1-0.6); Monocytes Percent Auto 4.5 % (2.6-8.5); Neutrophils Absolute Auto 3.2 K/mm3 (1.3-6.7); Neutrophils Percent Auto 52.8 % (45.5-73.1); Platelet Count Result 235 k/mm3 (150-375); Red Blood Count 4.06 M/mm3 (4.2-5.4); Red Cell Distribution Width 13.7 % (11.5-14.5); White Blood Count 6.1 K/mm3 (4.5-10.0)
[2024-07-01 13:06] LABS: Add Urine Microscopic? YES; Appearance Urine Cloudy (Clear); Bacteria Urine 4+ /hpf; Bilirubin Urine Negative (Negative); Blood Urine Negative (Negative); Color Urine Yellow (Yellow); Glucose Urine UA Negative (Negative); Ketones Urine Trace mg/dL (Negative); Leukocyte Esterase Ur Trace LEU/UL (Negative); Need Manual Microscopic Reviewed; Nitrate Urine Negative (Negative); Protein Urine 1+ mg/dL (Negative); RBC Urine 0-2 /hpf (0-2); Specific Grav Ur 1.029 (1.001-1.035); Squamous Epithelial Cell Urine Many /hpf (Few)
[2024-07-01 13:28] LABS: Hemoglobin A1C 4.7 % (<5.7)
[2024-07-01 13:48] LABS: HIV 1/2 Ab P24 Ag Result Negative (Negative)
[2024-07-01 13:52] LABS: Alanine Aminotransferase 16 U/L (6-35); Albumin Level 4.3 g/dL (3.5-5.1); Alkaline Phosphatase 78 U/L (38-126); Anion Gap 7 mmol/L (4-12); Aspartate Amino Transferase 30 U/L (14-36); Bilirubin Indirect 0.6 mg/dL (0-1.1); Bilirubin,Total 0.7 mg/dL (0.2-1.3); Blood Urea Nitrogen 20 mg/dL (7-17); Calcium 9.4 mg/dL (8.4-10.2); Carbon Dioxide 29 mmol/L (22-30); Chloride 105 mmol/L (98-107); Estimated Glomerular Filt Rate > 60; Glucose 79 mg/dL (65-110); Magnesium 2.2 mg/dL (1.6-2.3); Potassium 4.3 mmol/L (3.4-5.0); Sodium 141 mmol/L (137-145); Uric Acid 6.1 mg/dL (2.5-7.5)
[2024-07-01 13:54] LABS: Hepatitis B Surface Antigen Negative (Negative)
[2024-07-01 14:12] LABS: Hepatitis B Surface Anti Res Negative; Hepatitis C Virus Antibody Negative (Negative)
[2024-07-01 14:17] LABS: Complement C3 122 mg/dL (88-165); Rheumatoid Factor < 12.0 IU/ML (<12)
[2024-07-01 15:12] LABS: Erythrocyte Sedimentation Rate 39 mm/hr (0-20)
[2024-07-01 16:17] LABS: Free T4 Free Thyroxine 0.93 ng/dL (0.78-2.19)
[2024-07-01 16:28] LABS: Vitamin D 25 Hydroxy 22.7 ng/mL
[2024-07-01 20:31] LABS: Folic Acid 7.8 ng/mL (2.76->20)
[2024-07-01 20:35] LABS: Creatine Kinase 118 U/L (30-135)
[2024-07-01 20:36] LABS: CRP 0.5 mg/dL (<1.0)
[2024-07-02 20:27] LABS: Hepatitis B Core Ab Total NON-REACTIVE (NON-REACTIVE)
[2024-07-02 20:27] LABS: Lupus dRVVT Screen 39 sec (< OR = 45); PTT-LA Screen 34 sec (< OR = 40)
[2024-07-03 03:42] LABS: Chromatin Antibody <1.0 NEG AI (<1.0 NEG); RNP Antibodies <1.0 NEG AI (<1.0 NEG)
[2024-07-03 07:18] LABS: Anti Cardio Antibody IgM <2.0 MPL-U/mL; Anti Cardiolipin Antibody IgA <2.0 APL-U/mL; Anti Cardiolipin Antibody IgG <2.0 GPL-U/mL
[2024-07-03 12:39] LABS: Hepatitis C RNA, Quant PCR <15 NOT DETECTED IU/mL (NOT DETECTED)
[2024-07-03 14:13] LABS: NIL 0.02 IU/mL; Quantiferon TB Plus, 1T NEGATIVE (NEGATIVE)
[2024-07-03 14:53] LABS: Creatinine, Random Urine 277 mg/dL (20-275); Total Prot/Creat ratio mg/mg 0.076 (0.024-0.184); Total Protein/Creatinine Ratio 76 mg/g creat (24-184)
[2024-07-03 14:53] LABS: Complement Total CH50 >60 U/mL (31-60)
[2024-07-03 16:48] LABS: Cyclic Citrullinated Peptide <16 UNITS
[2024-07-04 14:28] LABS: Alpha 1 Globulin 0.3 g/dL (0.2-0.3); Alpha 2 Globulin 0.7 g/dL (0.5-0.9); Beta 1 Globulin 0.5 g/dL (0.4-0.6)
[2024-07-05 04:12] LABS: Kappa Lambda Free Ratio RU 10.67 (<=8.69); Kappa Light Chains, Free RU 53.78 mg/L (<=32.90); Lambda Free Light Chains RU 5.04 mg/L (<=3.79)
[2024-07-06 09:09] LABS: Vitamin B6 2.6 ng/mL (2.1-21.7)
[2024-07-06 21:43] LABS: Vitamin B1 <6 nmol/L (8-30)
== END 2024-07-01 11:08 | disposition home or self-care (01) ==
PROVIDERS: PCP Family Medicine; Visit Provider Internal Medicine Rheumatology
DX: Z51.81 Encounter for therapeutic drug level monitoring (principal); M32.9 Systemic lupus erythematosus, unspecified; M25.50 Pain in unspecified joint; G62.9 Polyneuropathy, unspecified; R53.83 Other fatigue; M79.10 Myalgia, unspecified site; R73.09 Other abnormal glucose; E55.9 Vitamin D deficiency, unspecified; E53.8 Deficiency of other specified B group vitamins; D50.9 Iron deficiency anemia, unspecified; Z79.899 Other long term (current) drug therapy; M19.012 Primary osteoarthritis, left shoulder; M16.11 Unilateral primary osteoarthritis, right hip; M19.011 Primary osteoarthritis, right shoulder
CPT/HCPCS: 36415; 73030; 73502; 73560; 73600; 73620; 80053; 81001; 82248; 82306; 82550; 82570; 82607; 82728; 82746; 83036; 83735; 84155; 84156; 84165; 84166; 84207; 84425; 84439; 84443; 84550; 85025; 85613; 85652; 85730; 86038; 86039; 86140; 86146; 86147; 86160; 86162; 86200; 86225; 86235; 86430; 86480; 86703; 86704; 86706; 86803; 86850; 87340; 87522; G0432

== ENCOUNTER 2024-07-31 09:52 | Outpatient (CLI) | payer BC, SELFPAY ==
--- NOTE | ~2024-07-31 | MR_ITS ---
MRI of the lumbar spine Clinical History: Back pain Technique: Axial T2-weighted images, and sagittal T1-weighted, T2-weighted, and T2 fat-sat images wer e acquired. Findings: There is no fracture of lumbar spine. There is 2 mm retrolisthesis of L5 over S1. No bone m arrow signal abnormality seen. At L1-L2, there is no disc bulge or herniation. No spinal canal stenosis or neural foraminal narrowin g. At L2-L3, there is no disc bulge or herniation. There is mild facet hypertrophy. No spinal canal sten osis. There is no neural foraminal narrowing. L3-L4, there is minimal disc bulge with moderate to advanced facet arthropathy. No central canal sten osis. There is moderate bilateral neural foraminal narrowing, left worse than right. At L4-L5, there is mild disc bulge with advanced facet arthropathy. No central canal stenosis. There is moderate to advanced right neural foraminal narrowing, and moderate left neural foraminal narrowin g. At L5-S1, there is mild disc bulge with mild facet arthropathy. No central canal stenosis. There is m oderate right neural foraminal narrowing and mild left neural foraminal narrowing. Paravertebral soft tissues are unremarkable. Impression: [id number] degenerative spondylitic changes, as above. Reviewed, dictated and finalized at location M. Impression: [id number] degenerative spondylitic changes, as above.
== END 2024-07-31 09:53 | disposition home or self-care (01) ==
LOC: MICIMG 09:53
PROVIDERS: PCP Family Medicine; Visit Provider Internal Medicine Rheumatology
DX: M47.816 Spondylosis without myelopathy or radiculopathy, lumbar region (principal)
CPT/HCPCS: 72148